=== PATIENT | female | born 1935 | race Caucasian/White ===

== ENCOUNTER 2017-04-05 18:55 | Inpatient (IN) | payer MEDICARE ==
[~2017-04-05] VITALS: Ht 157.5 cm; Wt 49.9 kg
--- NOTE | 2017-04-05 19:35 | NUR ---
Pt BIB private ambulance, on 5150 hold for DTO and GD. Pt has no idea why she is here and has no complaints. Pt denies CP, SOB, dizziness, n/v, no distress noted.
[2017-04-05 20:09] LABS: BASOPHILS # (AUTO) 0.1 K/uL (0.0-8.0); BASOPHILS % (AUTO) 0.8 % (0.0-2.0); EOSINOPHILS # (AUTO) 0.4 K/uL (0.0-0.7); EOSINOPHILS % (AUTO) 5.1 % (0.0-7.0); HEMATOCRIT 33.3 % (31.2-41.9); HEMOGLOBIN 11.4 g/dL (10.9-14.3); LYMPHOCYTES # (AUTO) 1.7 K/uL (20.0-40.0); LYMPHOCYTES % (AUTO) 23.7 % (20.5-51.5); MEAN CORPUSCULAR HEMOGLOBIN 33.2 uug (24.7-32.8); MEAN CORPUSCULAR HGB CONC 34 g/dL (32.3-35.6); MEAN CORPUSCULAR VOLUME 97.2 fL (75.5-95.3); MONOCYTES # (AUTO) 0.8 K/uL (2.0-10.0); MONOCYTES % (AUTO) 11.2 % (0.0-11.0); NEUTROPHILS # (AUTO) 4.3 K/uL (1.8-8.9); NEUTROPHILS % (AUTO) 59.2 % (38.5-71.5); PLATELET COUNT (AUTO) 195 K/uL (179-408); RED BLOOD CELL COUNT(AUTO) 3.42 MIL/uL (3.63-4.92); WHITE BLOOD COUNT (AUTO) 7.2 K/uL (3.8-11.8)
[2017-04-05 20:17] LABS: CARBON DIOXIDE 31 mmol/L (21-32); CHLORIDE 106 mmol/L (98-107); CREATININE 1.3 mg/dL (0.6-1.3); GLUCOSE 115 mg/dL (74-106); POTASSIUM 3.4 mmol/L (3.5-5.1); UREA NITROGEN, BLOOD 32 mg/dL (7-18)
[2017-04-05 20:19] LABS: ETHANOL < 3 MG/DL (0-0)
[2017-04-05 20:30] LABS: THYROID STIMULATING HORMONE 1.895 mIU/mL (0.358-3.740)
[2017-04-05 20:32] LABS: ACETAMINOPHEN < 2.0 ug/mL (10-30); ALANINE AMINOTRANSFERASE 22 U/L (14-59); ALKALINE PHOSPHATASE 86 U/L (50-136); ASPARTATE AMINOTRANSFERASE 17 U/L (15-37); BILIRUBIN,DIRECT 0.1 mg/dL (0.0-0.2); BILIRUBIN,TOTAL 0.3 mg/dL (0.2-1.0); TOTAL PROTEIN, SERUM 7.3 g/dL (6.4-8.2)
--- NOTE | 2017-04-05 21:17 | NUR ---
Called report to [facility].
[2017-04-05 22:10] VITALS: BP 123/67
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
[2017-04-05] MEDS ORDERED: MAG HYDROX/AL HYDROX/SIMETH 30 ML LIQUID UDC PO PRN (22:30)
[2017-04-05] MEDS ORDERED: ACETAMINOPHEN 325 MG TABLET PO PRN (22:30)
[2017-04-05] MEDS ORDERED: MAGNESIUM HYDROXIDE 30 ML LIQUID UDC PO PRN (22:30)
[2017-04-05] MEDS ORDERED: ZOLPIDEM 5 MG TABLET PO PRN (22:30)
[2017-04-05] MEDS ORDERED: RIVA1PAT3 TD (22:34)
[2017-04-05] MEDS ORDERED: AMLO5TAB2 PO (22:41)
[2017-04-05] MEDS ORDERED: HYDR25TA4 PO (22:41)
[2017-04-05] MEDS ORDERED: MEMA10TA PO (22:41)
[2017-04-05] MEDS ORDERED: BENA40TA2 PO (22:41)
[2017-04-05] MEDS ORDERED: CITA10TA9 PO (22:41)
--- NOTE | 2017-04-06 06:58 | NUR ---
Pt AWOKE SCREAMING, YELLING, AND TRYING TO GET OUT OF THE UNIT BY BANGING ON THE DOOR. VERBALLY ABUSIVE TOWARD STAFF. CULTURE OF (B) NARES AND UA COLLECTED AND SENT TO LAB.
[2017-04-06 07:30] VITALS: BP 90/45
[2017-04-06] MEDS ORDERED: OLANZAPINE 10 MG VIAL IM ONE (07:45)
[2017-04-06] MEDS ORDERED: LORAZEPAM 2 MG/1 ML VIAL IM ONE (07:45)
--- NOTE | 2017-04-06 07:45 | NUR ---
Gps/Inspector Raw Quartz- Patient loud, hitting the summers with her hands, yelling ,screaming, confused, not redirectable, pacing arounnd.Flight Nurse Francisco called Psychiatrist , notified of patient 's behavior, orders received.
[2017-04-06 08:06] LABS: *BILIRUBIN,URIN NEGATIVE (NEGATIVE); *BLOOD, URINE Trace-lysed (NEGATIVE); *CLARITY,URINE SLIGHTLY CLOUDY (CLEAR); *COLOR,URINE YELLOW (YELLOW); *KETONES,URINE NEGATIVE (NEGATIVE); *PROTEIN,URINE 1+ (NEGATIVE); *UROBILINOGEN,URINE 0.2 E.U./dl (NORMAL); LEUKOCYTE ESTERASE ,URINE 3+ (NEGATIVE); NITRITE, URINE NEGATIVE (NEGATIVE); PH,URINE 6.5 (5.0-8.0); UGLUCOSE NEGATIVE (NEGATIVE)
[2017-04-06 08:22] LABS: *AMPHETAMINE, URINE NEGATIVE (NEGATIVE); *BARBITURATE, URINE NEGATIVE (NEGATIVE); *CANNABINOID, URINE NEGATIVE (NEGATIVE); *COCCAINE, URINE NEGATIVE (NEGATIVE); *OPIATE, URINE NEGATIVE (NEGATIVE); *PHENCYCLIDINE SCREEN,URINE NEGATIVE (NEGATIVE)
[2017-04-06 09:00] VITALS: BP 90/45
[2017-04-06] MEDS ORDERED: CEPHALEXIN MONOHYDRATE 500 MG CAPSULE PO SCH (09:00)
[2017-04-06 09:05] LABS: BACTERIA,URINE FEW /HPF (NONE SEEN); SQUAMOUS EPITHELIAL CELL,UR FEW /HPF (NONE SEEN); WBC,URINE 50-80 /HPF (0-3)
--- NOTE | 2017-04-06 10:30 | NUR ---
Gps/Paleology Teacher- Patient in bed, appeared to calmed down, quiet,monitor safety b/p 121/46 HR 77, 02 sat 92%, confused, unsteady gait. Assisted to amie-chair for safetym, gait was unsteady, kept up infront of the nurses station monitored closely for safety.
[2017-04-06 10:45] VITALS: BP 121/46
[2017-04-06] MEDS: CEPHALEXIN MONOHYDRATE 250 MG CAPSULE PO SCH ×2 (11:26→17:11)
[2017-04-06] MEDS: LORAZEPAM 0.5 MG TABLET PO PRN ×2 (12:28→20:37)
[2017-04-06] MEDS: MEMANTINE HCL 5 MG TABLET PO SCH ×2 (14:43→20:36)
[2017-04-06] MEDS: QUETIAPINE FUMARATE 25 MG TABLET PO SCH ×2 (14:43→16:53)
[2017-04-06 15:00] VITALS: BP 102/56
--- NOTE | 2017-04-06 15:24 | NUR ---
Gps/Director Home Health- Called [facility], spoked to Nanette, no records of patient receiving Pneumonia vaccine( pt.has only been there since 2016) received flu vaccine 2016 ,called her daughter Matt, and left message.
--- NOTE | 2017-04-06 17:18 | NUR ---
Gps/Jewel Inspector- Daughter Matt returned call, will call PMD in am. to check records regarding Pneumonia vaccine .
[2017-04-06] MEDS ORDERED: QUETIAPINE FUMARATE 25 MG TABLET PO SCH (21:00)
[2017-04-06] MEDS ORDERED: MEMANTINE HCL 10 MG TABLET PO SCH (21:00)
[2017-04-06 21:22] VITALS: BP 106/46
--- NOTE | 2017-04-06 22:02 | NUR ---
Received pt up in her amie-chair for safety, she is a/o 1 unsteady gait, anxious mood, confused, disoriented. she is medication compliant at this time. Ativan 0.5mg PO PRN was given at 2036 for anxious mood. safety was emphasis.
[2017-04-07] MEDS: CEPHALEXIN MONOHYDRATE 250 MG CAPSULE PO SCH ×2 (02:00→10:41)
[2017-04-07 07:30] VITALS: BP 149/79
[2017-04-07] MEDS: QUETIAPINE FUMARATE 25 MG TABLET PO SCH ×3 (08:34→16:43)
[2017-04-07] MEDS: MEMANTINE HCL 5 MG TABLET PO SCH ×2 (08:34→20:10)
[2017-04-07] MEDS: RIVASTIGMINE 9.5 MG/ 24 HR 9.5 MG PATCH TD SCH (08:35)
[2017-04-07] MEDS: LORAZEPAM 0.5 MG TABLET PO PRN ×2 (11:46→22:20)
[2017-04-07] MEDS ORDERED: AMPICILLIN 500 MG CAPSULE PO SCH (12:00)
[2017-04-07] MEDS: AMPICILLIN 500 MG CAPSULE PO SCH ×2 (15:35→22:20)
--- NOTE | 2017-04-07 15:38 | NUR ---
Initial Discharge: Patient currently resides in [facility] [[address] [place] [address]; ]. Pt's daughter Matt reports that she wants her mother to go back to this facility. SW spoke to Nanette at [facility] who stated that the pt is able to come back to the facility after discharge if pt's medications are managed and she is not verbally aggressive. SW will follow up with MD, patient, patient's daughter Matt [phone] to discuss the most appropriate discharge plans. SW will form a safe and proper discharge.
[2017-04-07 16:00] VITALS: BP 115/56
[2017-04-07] MEDS: QUETIAPINE FUMARATE 100 MG TABLET PO SCH (20:10)
[2017-04-07 20:51] VITALS: BP 132/73
[2017-04-07] MEDS ORDERED: QUETIAPINE FUMARATE 25 MG TABLET PO SCH (21:00)
[2017-04-08] MEDS: AMPICILLIN 500 MG CAPSULE PO SCH ×3 (06:15→22:00)
[2017-04-08 07:30] VITALS: BP 124/58
[2017-04-08 08:04] LABS: BASOPHILS # (AUTO) 0.1 K/uL (0.0-8.0); BASOPHILS % (AUTO) 1.1 % (0.0-2.0); EOSINOPHILS # (AUTO) 0.4 K/uL (0.0-0.7); EOSINOPHILS % (AUTO) 6.8 % (0.0-7.0); HEMATOCRIT 35.5 % (31.2-41.9); HEMOGLOBIN 12.3 g/dL (10.9-14.3); LYMPHOCYTES # (AUTO) 1.4 K/uL (20.0-40.0); MEAN CORPUSCULAR HEMOGLOBIN 33.5 uug (24.7-32.8); MEAN CORPUSCULAR HGB CONC 35 g/dL (32.3-35.6); MEAN CORPUSCULAR VOLUME 96.5 fL (75.5-95.3); MONOCYTES # (AUTO) 0.7 K/uL (2.0-10.0); MONOCYTES % (AUTO) 11.2 % (0.0-11.0); NEUTROPHILS # (AUTO) 3.8 K/uL (1.8-8.9); NEUTROPHILS % (AUTO) 58.9 % (38.5-71.5); PLATELET COUNT (AUTO) 205 K/uL (179-408); RED BLOOD CELL COUNT(AUTO) 3.68 MIL/uL (3.63-4.92); WHITE BLOOD COUNT (AUTO) 6.4 K/uL (3.8-11.8)
[2017-04-08 08:36] LABS: ALANINE AMINOTRANSFERASE 21 U/L (14-59); ALKALINE PHOSPHATASE 72 U/L (50-136); ASPARTATE AMINOTRANSFERASE 27 U/L (15-37); BILIRUBIN,TOTAL 0.5 mg/dL (0.2-1.0); CARBON DIOXIDE 30 mmol/L (21-32); CHLORIDE 104 mmol/L (98-107); CREATININE 1.2 mg/dL (0.6-1.3); GLUCOSE 102 mg/dL (74-106); MAGNESIUM 2.2 mg/dL (1.8-2.4); PHOSPHOROUS 3.6 mg/dL (2.5-4.9); POTASSIUM 3.6 mmol/L (3.5-5.1); TOTAL PROTEIN, SERUM 7.1 g/dL (6.4-8.2); UREA NITROGEN, BLOOD 23 mg/dL (7-18)
[2017-04-08] MEDS: MEMANTINE HCL 5 MG TABLET PO SCH ×2 (08:50→20:04)
[2017-04-08] MEDS: QUETIAPINE FUMARATE 25 MG TABLET PO SCH ×3 (08:51→16:02)
[2017-04-08] MEDS: RIVASTIGMINE 9.5 MG/ 24 HR 9.5 MG PATCH TD SCH (08:51)
--- NOTE | 2017-04-08 09:45 | NUR ---
PT WAS NOTED SITTING IN THE BED WHILE MAKING ROUNDS. THE NURSE WENT TO GET SUPPLIES. UPON RETURN, PT WAS NOTED ON THE FLOOR NEXT TO THE BED. PT WAS ASSISTED TO THE CHAIR. A SMALL SKIN ABRASION WAS NOTED ON RIGHT KNEE. PT DENIES PAIN. VS WERE WNL. PT'S DAUGHTER GLADIS WAS NOTIFIED, GENOVEVA VALLE WAS NOTIFIED. NO NEW ORDERS. WILL CONTINUE TO MONITOR.
[2017-04-08] MEDS: LORAZEPAM 0.5 MG TABLET PO PRN (11:13)
[2017-04-08] MEDS: GENTAMICIN SULFATE OPHT DROP 5 ML BOTTLE RIGHTEYE SCH ×2 (16:02→18:51)
[2017-04-08 16:50] VITALS: BP 103/50
[2017-04-08] MEDS: QUETIAPINE FUMARATE 100 MG TABLET PO SCH (20:04)
[2017-04-08 20:25] VITALS: BP 112/75
[2017-04-09] MEDS: LORAZEPAM 0.5 MG TABLET PO PRN ×3 (01:17→17:22)
[2017-04-09] MEDS: AMPICILLIN 500 MG CAPSULE PO SCH ×3 (06:45→22:35)
[2017-04-09] MEDS: GENTAMICIN SULFATE OPHT DROP 5 ML BOTTLE RIGHTEYE SCH ×5 (06:46→23:51)
[2017-04-09 07:30] VITALS: BP 106/50
[2017-04-09] MEDS: RIVASTIGMINE 9.5 MG/ 24 HR 9.5 MG PATCH TD SCH (08:17)
[2017-04-09] MEDS: QUETIAPINE FUMARATE 25 MG TABLET PO SCH ×3 (08:17→17:01)
[2017-04-09] MEDS: MEMANTINE HCL 5 MG TABLET PO SCH ×2 (08:17→21:00)
[2017-04-09 16:18] VITALS: BP 99/53
[2017-04-09] MEDS ORDERED: QUETIAPINE FUMARATE 25 MG TABLET PO PRN (16:45)
[2017-04-09 20:00] VITALS: BP 111/65
[2017-04-09] MEDS: QUETIAPINE FUMARATE 100 MG TABLET PO SCH (21:00)
[2017-04-10] MEDS: AMPICILLIN 500 MG CAPSULE PO SCH ×3 (06:00→16:50)
[2017-04-10] MEDS: GENTAMICIN SULFATE OPHT DROP 5 ML BOTTLE RIGHTEYE SCH ×3 (06:00→17:36)
[2017-04-10 07:30] VITALS: BP 122/56
[2017-04-10] MEDS: RIVASTIGMINE 9.5 MG/ 24 HR 9.5 MG PATCH TD SCH (08:14)
[2017-04-10] MEDS: MEMANTINE HCL 5 MG TABLET PO SCH ×2 (08:15→20:20)
[2017-04-10] MEDS: QUETIAPINE FUMARATE 25 MG TABLET PO SCH ×3 (08:15→16:51)
[2017-04-10] MEDS ORDERED: LORAZEPAM 2 MG/1 ML VIAL IM ONE (11:45)
[2017-04-10] MEDS ORDERED: OLANZAPINE 10 MG VIAL IM ONE (11:45)
--- NOTE | 2017-04-10 11:46 | NUR ---
PATIENT IS IN BED ATTEMPTED TO GET OUT FROM BED WITHOUT ASSISTED, WHEN CARE PROVIDE SHE BECOME VERY COMBATIVE ,HITTING BEATING ON THE TABLE.UNABLE TO FOLLOW DIRECTION ,THREATENING AND PHYSICAL HARM TO STAFFS. MD MADE AWARE IM WAS ORDERED AND GIVEN ,WILL CONTINUE MONITORING.
--- NOTE | 2017-04-10 12:30 | NUR ---
PATIENT HAS BEEN C/O RIGHT SHOULDER PAIN ,MD MADE AWARE ,X-RAY ORDERED.
--- NOTE | 2017-04-10 14:38 | NUR ---
RIGHT SHOULDER X RAY RESULT RELAY TO [facility] [employer] INDU[employer]Y ANALYST WITH NEW ORDER FOR ORTHO CONSULT BY DR. BOLAND .
--- NOTE | 2017-04-10 14:42 | NUR ---
Called Dr. Liliana Umanzor , for Ortho consult, unit secretary stated Dr. Umanzor will be in tomorrow in AM and will call unit.
--- NOTE | 2017-04-10 14:44 | NUR ---
RECEIVED RIGHT SHOULDER X RAY RESULT ,FAMILY NOTIFIED LEFT MASSAGE IN PATIENT'S DAUGHTER JOAN ' VOICE MAIL.
--- NOTE | 2017-04-10 16:13 | NUR ---
spoke with pt's daughter Neva regarding Right shoulder xray result.
[2017-04-10 17:06] VITALS: BP 120/52
--- NOTE | 2017-04-10 17:46 | NUR ---
noted patient's right shoulder is swelling ice pack applied ,[place] STRUCTURAL METAL FABRICATOR APPRENTICE notified ,will transfer patient to med/surg floor.
--- NOTE | 2017-04-10 18:02 | NUR ---
Dr. celestin notified with order to transfer to Telemetry floor ,nursing supervisor housecleaner notified.
--- NOTE | 2017-04-10 18:35 | NUR ---
spoke with patient's daughter Neva regarding patient transfer to Tele floor for further treatment.
--- NOTE | 2017-04-10 19:45 | NUR ---
PT RECEIVED TO CARE IN HER ROOM LYING IN BED AWAKE BUT CONFUSED AND RESTLESS, SITTER AT BED SIDE, RIGHT SHOULDER SWOLLEN, BRUISE NOTED ON THE MIDDLE, TRIED TO APPLY ICE BUT PT DECLINED, PT REFUSED VITAL SIGNS, VERY IRRITABLE, YELLING SCREAMING, DOES NOT MAKE SENSE, WILL CONTINUE TO MONITOR CLOSELY.
[2017-04-10 20:15] VITALS: BP 128/63
[2017-04-10] MEDS: QUETIAPINE FUMARATE 100 MG TABLET PO SCH (20:20)
--- NOTE | 2017-04-10 20:20 | NUR ---
ORDER OBTAINED FROM DR GUY TO DISCHARGE PT TO TELE FLOOR, TO CONTINUE ALL MEDS AND TO CONTINUE 14 DAY HOLD, PT'S DAUGHTER NOTIFIED, BED TIME MEDS GIVEN, CRUSHED AND GIVEN WITH WERNER PUDDING.
--- NOTE | 2017-04-10 21:00 | NUR ---
PT TRANSFERRED TO MED SURG TELE FL [id number], REPORT GIVEN TO TOÑO HENSON. ALL PT'S BELONGINGS SENT WITH THE PT ANS THE SITTER, ORIGINAL HOLD PAPERS SENT WITH PT, INCLUDING VACCINE RECORD, TMS, REPORT OF XRAY, FACE SHEET, DOCTORS ORDER .
[2017-04-10] MEDS ORDERED: QUET100T PO ×3 (21:07→21:19)
[2017-04-10] MEDS ORDERED: QUET50TA PO (21:19)
== END 2017-04-10 21:00 | disposition short-term general hospital (02) | DRG 885 ==
LOC: ER 18:55 → GPS 21:53
PROVIDERS: ADMIT Psychiatry & Neurology Psychiatry; ATTEND Internal Medicine
DX: F23 Brief psychotic disorder (principal); F02.81 Dementia in other diseases classified elsewhere, unspecified severity, with behavioral disturbance; B95.5 Unspecified streptococcus as the cause of diseases classified elsewhere; G30.9 Alzheimer's disease, unspecified; M80.821A Other osteoporosis with current pathological fracture, right humerus, initial encounter for fracture; N39.0 Urinary tract infection, site not specified; E78.5 Hyperlipidemia, unspecified; F41.8 Other specified anxiety disorders; E87.6 Hypokalemia; Z79.899 Other long term (current) drug therapy; I10 Essential (primary) hypertension; I70.0 Atherosclerosis of aorta; H10.9 Unspecified conjunctivitis
CPT/HCPCS: 36415; 70030-TC; 71045; 73030; 80307; 83735; 84100; 84443; 85025; 85730; 87086; 93005; A4663; G0480; G0480-TC; J0290; J2060; J2358

== ENCOUNTER 2017-04-10 20:48 | Inpatient (IN) | payer MEDICARE ==
[~2017-04-10] VITALS: Ht 157.5 cm; Wt 51.3 kg
[~2017-04-10 20:48] MED LIST: AMLO5TAB2 PO; BENA40TA2 PO; HYDR25TA4 PO
[2017-04-10 21:00] VITALS: BP 126/81
[2017-04-10] MEDS ORDERED: QUET100T PO ×3 (21:07→21:19)
[2017-04-10] MEDS ORDERED: QUET50TA PO (21:19)
--- NOTE | 2017-04-10 21:20 | NUR ---
nsg: pt received mental [facility], confused. has right humeral fracture. v/s stable. tele, SR. pt with sitter at the bedside. cont to monitor.
[2017-04-10] MEDS ORDERED: MORPHINE SULFATE 2 MG/1 ML DISP.SYRIN IV PRN (22:15)
[2017-04-10] MEDS ORDERED: CEFTRIAXONE 1 G in IV DEXTROSE 5% 50 ML IV SCH (22:15)
[2017-04-10] MEDS ORDERED: ONDANSETRON 4 MG/2 ML VIAL IV PRN (22:15)
[2017-04-10] MEDS ORDERED: CEFTRIAXONE 1 G VIAL ONE (23:03)
--- NOTE | 2017-04-10 23:15 | NUR ---
nsg: Dr. Umanzor came to see pt. see orders.
[2017-04-10] MEDS: POTASSIUM CHLORIDE 20 MEQ in IV D5 1/2 NS 1000 ML 1,000 ML IV PRN (23:36)
[2017-04-11] VITALS: BP 122/81
--- NOTE | 2017-04-11 00:15 | NUR ---
NSG: Pt put on a sling per Dr. Umanzor's order.
--- NOTE | 2017-04-11 01:00 | NUR ---
Patient's family ortho doctor Dr. Romero called to check on patient. Referred Dr. Romero to Dr. Umanzor to discuss patient's status. Addendum: 04/11/17 at 1855 by VINAYAK BIRCH RN Correction: Time should be 1300 instead of 0100
[2017-04-11 04:00] VITALS: BP 130/81
--- NOTE | 2017-04-11 05:30 | NUR ---
NSG: Pt drowsy but arousable. kept clean and dry. repositioned. wears sling on right arm per Dr. Umanzor's order. tele, SR. cont to monitor.
--- NOTE | 2017-04-11 05:46 | NUR ---
RECEIVED PT AWAKE IN BED, SHE'S CONFUSED AND EASILY AGITATED. DENIES PAIN OR DISCOMFORT. SITTER AT BEDSIDE, WILL CONTINUE TO MONITOR PT Addendum: 04/12/17 at 0549 by CHRISTIANA WEBER RN TIME OF RECEIPT 2000
[2017-04-11 06:46] LABS: ALANINE AMINOTRANSFERASE 24 U/L (14-59); ALKALINE PHOSPHATASE 61 U/L (50-136); ASPARTATE AMINOTRANSFERASE 25 U/L (15-37); BILIRUBIN,TOTAL 0.5 mg/dL (0.2-1.0); CARBON DIOXIDE 30 mmol/L (21-32); CHLORIDE 106 mmol/L (98-107); GLUCOSE 136 mg/dL (74-106); PHOSPHOROUS 3.3 mg/dL (2.5-4.9); POTASSIUM 3.9 mmol/L (3.5-5.1); TOTAL PROTEIN, SERUM 6.2 g/dL (6.4-8.2); UREA NITROGEN, BLOOD 25 mg/dL (7-18)
[2017-04-11 06:56] LABS: IRON, SERUM 36 ug/dL (50-175)
[2017-04-11 07:02] LABS: BASOPHILS % (AUTO) 0.6 % (0.0-2.0); EOSINOPHILS # (AUTO) 0.2 K/uL (0.0-0.7); LYMPHOCYTES # (AUTO) 1.2 K/uL (20.0-40.0); LYMPHOCYTES % (AUTO) 24.1 % (20.5-51.5); MEAN CORPUSCULAR HEMOGLOBIN 33.3 uug (24.7-32.8); MEAN CORPUSCULAR HGB CONC 34 g/dL (32.3-35.6); MONOCYTES # (AUTO) 0.9 K/uL (2.0-10.0); MONOCYTES % (AUTO) 17.4 % (0.0-11.0); NEUTROPHILS # (AUTO) 2.8 K/uL (1.8-8.9); NEUTROPHILS % (AUTO) 54.9 % (38.5-71.5); PLATELET COUNT (AUTO) 197 K/uL (179-408); RED BLOOD CELL COUNT(AUTO) 2.98 MIL/uL (3.63-4.92); WHITE BLOOD COUNT (AUTO) 5.1 K/uL (3.8-11.8)
[2017-04-11 07:04] LABS: HEMATOCRIT 28.9 % (31.2-41.9); HEMOGLOBIN 9.9 g/dL (10.9-14.3)
[2017-04-11] MEDS: LORAZEPAM 2 MG/1 ML VIAL IV PRN (07:59)
[2017-04-11] MEDS: PANTOPRAZOLE SODIUM 40 MG TABLET.DR PO SCH (08:20)
[2017-04-11] MEDS: QUETIAPINE FUMARATE 25 MG TABLET PO SCH ×2 (10:10→16:54)
[2017-04-11] MEDS: RIVASTIGMINE 9.5 MG/ 24 HR 9.5 MG PATCH TD SCH (10:10)
[2017-04-11] MEDS: MEMANTINE HCL 5 MG TABLET PO SCH ×2 (10:10→20:54)
[2017-04-11 10:21] LABS: EOSINOPHILS % (MANUAL) 1 % (0-8); LYMPHOCYTES % (MANUAL) 26 % (20-40); MONOCYTES % (MANUAL) 14 % (2-10); MYELOCYTES % 1 % (0-0); NEUTROPHILS % (MANUAL) 58 % (42-75)
[2017-04-11 12:00] VITALS: BP 113/47
--- NOTE | 2017-04-11 13:00 | NUR ---
Patient's family ortho doctor Dr. Romero called to check on patient. Referred Dr. Romero to Dr. Umanzor to discuss patient's status.
--- NOTE | 2017-04-11 13:20 | NUR ---
spoke to Dr Umanzor that a family friend ortho MD Dr Walton would like the xray film to be faxed/texted to him (Dr Walton)- told Dr Umanzor that I would refer this to the community planner and community planner notified Addendum: 04/11/17 at 1355 by MAKENZIE AVENDAÑO RN xray film to be texted to his cell phone [phone]
--- NOTE | 2017-04-11 13:34 | NUR ---
14 day hold discontinued by MD. Order in patient's chart.
--- NOTE | 2017-04-11 15:00 | NUR ---
Patient visited by daughters Matt Ashby and Aide Schultz, daughter-law- Beverly Edward. 1:1 sitter at bedside provided for safety.
[2017-04-11 16:00] VITALS: BP 137/64
--- NOTE | 2017-04-11 16:08 | NUR ---
[employer] Security Number [id number]. Please ask admitting to add to MAR
--- NOTE | 2017-04-11 16:40 | NUR ---
Woven Paper Hat Mender from [employer] at bedside to secure specified sling as ordered. Patient tolerated procedure well, cooperative, in no distress. Administered pain medication as ordered.
[2017-04-11] MEDS: MORPHINE SULFATE 4 MG/1 ML DISP.SYRIN IV PRN (16:54)
--- NOTE | 2017-04-11 18:00 | NUR ---
Patient resting in bed, in no distress. IVF running, no infiltration noted. Patient positioned as ordered. Sling on right arm intact, placed as ordered. Assisted patient with toileting needs. Safety measures in place, bed alarm on. Will continue to monitor.
[2017-04-11 20:00] VITALS: BP 104/64
[2017-04-11] MEDS: QUETIAPINE FUMARATE 100 MG TABLET PO SCH (20:55)
[2017-04-11] MEDS: POTASSIUM CHLORIDE 20 MEQ in IV D5 1/2 NS 1000 ML 1,000 ML IV PRN (20:57)
[2017-04-11] MEDS: CEFTRIAXONE 1 G in IV DEXTROSE 5% 50 ML IV SCH (21:01)
--- NOTE | 2017-04-12 | NUR ---
PT IS ASLEEP WITH NO S/S OF PAIN OR DISTRESS AT PRESENT. SITTER AT BED SIDE WITH CLOSE MONITORING OF PT, WILL CONTINUE TO MONITOR PT
[2017-04-12] MEDS: LORAZEPAM 2 MG/1 ML VIAL IV PRN ×2 (05:29→18:04)
--- NOTE | 2017-04-12 05:45 | NUR ---
PT IS VERY AGITATED AND ANXIOUS COMBATIVE DURING VITALS SIGNS, KICKING AND HITTING STAFF, ATIVAN PRN GIVEN WITH EFFECT. CALM AND QUIET ENVIRONMENT PROVIDED, WILL CONTINUE TO MONITOR PT
[2017-04-12] MEDS: PANTOPRAZOLE SODIUM 40 MG TABLET.DR PO SCH (06:47)
[2017-04-12] MEDS: MORPHINE SULFATE 4 MG/1 ML DISP.SYRIN IV PRN ×3 (06:54→15:59)
[2017-04-12 07:24] LABS: BASOPHILS % (AUTO) 0.5 % (0.0-2.0); EOSINOPHILS # (AUTO) 0.1 K/uL (0.0-0.7); EOSINOPHILS % (AUTO) 2.1 % (0.0-7.0); HEMATOCRIT 25.3 % (31.2-41.9); HEMOGLOBIN 8.8 g/dL (10.9-14.3); LYMPHOCYTES # (AUTO) 1.2 K/uL (20.0-40.0); LYMPHOCYTES % (AUTO) 20.3 % (20.5-51.5); MEAN CORPUSCULAR HEMOGLOBIN 33.9 uug (24.7-32.8); MEAN CORPUSCULAR HGB CONC 35 g/dL (32.3-35.6); MEAN CORPUSCULAR VOLUME 97.2 fL (75.5-95.3); MONOCYTES # (AUTO) 0.9 K/uL (2.0-10.0); NEUTROPHILS # (AUTO) 3.6 K/uL (1.8-8.9); NEUTROPHILS % (AUTO) 62.1 % (38.5-71.5); PLATELET COUNT (AUTO) 164 K/uL (179-408); RED BLOOD CELL COUNT(AUTO) 2.61 MIL/uL (3.63-4.92); WHITE BLOOD COUNT (AUTO) 5.8 K/uL (3.8-11.8)
[2017-04-12 07:36] LABS: CARBON DIOXIDE 26 mmol/L (21-32); CHLORIDE 109 mmol/L (98-107); GLUCOSE 125 mg/dL (74-106); POTASSIUM 4.5 mmol/L (3.5-5.1); UREA NITROGEN, BLOOD 17 mg/dL (7-18)
[2017-04-12] MEDS: RIVASTIGMINE 9.5 MG/ 24 HR 9.5 MG PATCH TD SCH (08:31)
[2017-04-12] MEDS: QUETIAPINE FUMARATE 25 MG TABLET PO SCH ×2 (08:31→16:00)
[2017-04-12] MEDS: MEMANTINE HCL 5 MG TABLET PO SCH ×2 (08:31→21:00)
[2017-04-12] MEDS ORDERED: BISACODYL 10 MG SUPP.RECT RC ONE (10:00)
[2017-04-12 10:39] LABS: EOSINOPHILS % (MANUAL) 1 % (0-8); LYMPHOCYTES % (MANUAL) 19 % (20-40); MONOCYTES % (MANUAL) 16 % (2-10); NEUTROPHILS % (MANUAL) 64 % (42-75)
[2017-04-12] MEDS: IV 1/2NS 1000 ML 1,000 ML IV PRN (10:58)
[2017-04-12 12:00] VITALS: BP 98/48
[2017-04-12 16:00] VITALS: BP 103/40
--- NOTE | 2017-04-12 18:00 | NUR ---
Assessed patient, scanned bladder, result showed 999ml. notified. Order for urbina cath taken, read back, carried out.
--- NOTE | 2017-04-12 18:20 | NUR ---
Ernandez cath insertion done, patient tolerated procedure well. Urine output 800ml, yellow/clear color, no sediments noted. Will endorse to denture contour wire specialist RN to monitor urine output.
--- NOTE | 2017-04-12 18:45 | NUR ---
Patient is alert, no distress. Patient in sitting position, hob 45 degrees, raised foot of the bed to bend the knee as ordered. Brace on right arm intact/secured in place as ordered. Circulation checked. IVF running, no infiltration noted. Pain management as ordered. Patient visited by family at 1700. 1:1 sitter provided for safety, all safety measures in place, bed alarm on. Will continue to monitor.
--- NOTE | 2017-04-12 19:00 | NUR ---
CT scan of the right shoulder with 3 D reformation without contrast ordered by Dr. Umanzor. Radiology notified.
[2017-04-12 19:26] VITALS: BP 98/63
--- NOTE | 2017-04-12 20:00 | NUR ---
RECEIVED PT ASLEEP IN BED BUT EASILY AROUSABLE, NO S/S OF PAIN OR DISTRESS NOTED. SITTER AT BEDSIDE. WILL CONTINUE TO MONITOR PT
[2017-04-12] MEDS: Z GUARD REMEDY PASTE 57 GM TUBE TOP SCH (21:00)
[2017-04-12] MEDS: QUETIAPINE FUMARATE 100 MG TABLET PO SCH (21:00)
[2017-04-12] MEDS: CEFTRIAXONE 1 G in IV DEXTROSE 5% 50 ML IV SCH (21:02)
--- NOTE | 2017-04-13 03:46 | NUR ---
CONTINUE TO MONITOR PT, PT IS ASLEEP WITH HOB AT 45 DEGREES WITH FOOT RAISED TO BEND KNEES. HSS BRACE IN PLACE AND INTACT, SKIN IS PINK WITH GOOD CIRCULATION. PT WITH NO S/S OF PAIN OR DISTRESS AT PRESENT. SITTER AT BED SIDE, WILL CONTINUE TO MONITOR PT
[2017-04-13] MEDS: PANTOPRAZOLE SODIUM 40 MG TABLET.DR PO SCH (06:00)
[2017-04-13 07:00] VITALS: BP 110/65
[2017-04-13 07:23] LABS: CARBON DIOXIDE 30 mmol/L (21-32); CHLORIDE 103 mmol/L (98-107); CREATININE 0.9 mg/dL (0.6-1.3); GLUCOSE 117 mg/dL (74-106); POTASSIUM 3.9 mmol/L (3.5-5.1); UREA NITROGEN, BLOOD 13 mg/dL (7-18)
--- NOTE | 2017-04-13 07:30 | NUR ---
Received patient resting in bed, in no distress. Brace on right shoulder in place, noted bruising and swelling. Pulses checked, skin warm. Will notify MD regarding patient's right shoulder assessment. Addendum: 04/13/17 at 1633 by VINAYAK BIRCH RN Add: IVF infusing, urbina cath patent/intact, draining yellow urine.
[2017-04-13] MEDS: LORAZEPAM 2 MG/1 ML VIAL IV PRN (08:45)
--- NOTE | 2017-04-13 08:45 | NUR ---
Patient agitated, combative, shouting, screaming, non cooperative with patient care. Patient was pulling IV line and urbina cath, hitting, kicking, risk of hurting self. Reorientation attempts unsuccessful, medicated as ordered. Padded rails for patient's safety to prevent bruising self from kicking and hitting. Notified MD of behavioral condition of patient. Acute restraints ordered. Will reassess and continue to monitor.
[2017-04-13] MEDS: MEMANTINE HCL 5 MG TABLET PO SCH ×2 (08:48→20:26)
[2017-04-13] MEDS: QUETIAPINE FUMARATE 25 MG TABLET PO SCH ×2 (08:48→16:06)
[2017-04-13] MEDS: RIVASTIGMINE 9.5 MG/ 24 HR 9.5 MG PATCH TD SCH (08:49)
[2017-04-13] MEDS: Z GUARD REMEDY PASTE 57 GM TUBE TOP SCH ×2 (08:49→20:31)
[2017-04-13 08:50] VITALS: BP 103/61
[2017-04-13 08:54] LABS: EOSINOPHILS # (AUTO) 0.2 K/uL (0.0-0.7)
[2017-04-13 09:12] LABS: BASOPHILS % (AUTO) 0.5 % (0.0-2.0); EOSINOPHILS % (AUTO) 3.1 % (0.0-7.0); HEMATOCRIT 28.5 % (37-47); HEMOGLOBIN 9.9 G/DL (12.0-16.0); LYMPHOCYTES # (AUTO) 1.1 K/UL (0.8-4.8); MEAN CORPUSCULAR HEMOGLOBIN 33.8 UUG (27.0-31.0); MEAN CORPUSCULAR HGB CONC 35 g/dL (32.0-37.0); MEAN CORPUSCULAR VOLUME 97.6 FL (81.0-99.0); MONOCYTES # (AUTO) 0.8 K/UL (0.1-1.30); MONOCYTES % (AUTO) 11.8 % (0.0-11.0); NEUTROPHILS # (AUTO) 4.4 K/UL (1.8-8.9); NEUTROPHILS % (AUTO) 67.6 % (38.5-71.5); PLATELET COUNT (AUTO) 176 K/UL (150-450); RED BLOOD CELL COUNT(AUTO) 2.92 MIL/UL (4.2-5.4); WHITE BLOOD COUNT (AUTO) 6.5 K/UL (4.0-11.2)
[2017-04-13] MEDS: IV 1/2NS 1000 ML 1,000 ML IV PRN (09:46)
--- NOTE | 2017-04-13 11:17 | NUR ---
Patient transported via gurney to Radiology for CT scan of the right shoulder. Accompanied by radiologist and title insurance examiner. Patient is asleep, easily arousable, in no distress.
[2017-04-13] MEDS: MORPHINE SULFATE 4 MG/1 ML DISP.SYRIN IV PRN (15:00)
[2017-04-13 15:13] VITALS: BP 130/61
[2017-04-13] MEDS: IV NS 1000 ML 1,000 ML IV PRN (16:06)
--- NOTE | 2017-04-13 18:00 | NUR ---
Patient resting in bed, calm, in no distress. Positioned as ordered. Brace on right arm secured in place. IVF running, no infiltration noted. Pain management as ordered. Ernandez cath intact/patent draining yellow urine. Circulation checked for acute restraints/mittens, protocol/safety followed. Patient kept clean/dry. Bed alarm on. 1:1 sitter provided. Will continue to monitor.
[2017-04-13 20:00] VITALS: BP 125/61
[2017-04-13] MEDS: QUETIAPINE FUMARATE 100 MG TABLET PO SCH (20:26)
[2017-04-13] MEDS: CEFTRIAXONE 1 G in IV DEXTROSE 5% 50 ML IV SCH (22:16)
[2017-04-14 06:00] VITALS: BP 125/52
[2017-04-14] MEDS: PANTOPRAZOLE SODIUM 40 MG TABLET.DR PO SCH (06:02)
--- NOTE | 2017-04-14 06:35 | NUR ---
PATIENT WAS RESTLESS AT THE BEGINNING OF THE SHIFT, CONTINUED TO YELL AND ATTEMPT TO PULL OFF HER MITTENS. 1:1 SITTER AT BEDSIDE AT ALL TIMES. RESTRAINTS RELEASED REGULARLY AND SKIN CHECKED. GLASS CATHETER INTACT AND DRAINING YELLOW URINE. OFFERED PATIENT SOME FOOD AND FLUIDS AND THEN PATIENT SLEPT A TOTAL OF 8 HOURS LAST NIGHT.
--- NOTE | 2017-04-14 08:17 | NUR ---
Social Work Update: 04/11/17: Family meeting with KLAUS Gutierrez [phone] and her sister in law, Beverly on [facility]. floor after Dorie LUNDBERG said family need clarification about patient's hold status. They needed reassurance that patient will still be followed by Dr Segovia on [facility]. and this was provided. Matt played recorded message from GPS RN on 04/08/17 who spoke fast and did not state name clearly where she was advised that her mother fell off her bed on 04/08/17. They sated that they had sen the shoulder Xray to their brother in law, Dr Romero, who is a shoulder specialist in [place] and he felt she needed surgery. They were considering various options for her surgery but wanted her to be a hospital that had psychiatry electronic systems security assessment as they feared she would decompensate without psychiatric follow up prior to and and after surgery. KLAUS Gutierrez stated she was overwhelmed as her father, patient's was in [facility]. timber mill worker provided her contact information and agreed to follow up with family. They also requested names and number of our orthopedists on staff at [facility]. Dr Umanzor had already seen patient. Provided Dr Natanael Concepcion's number: [phone] per family request They said Dr Romero would make all the decisions and would call Dr Concepcion too. Notified Dr KARMEN Hernandes, production administrator of family meeting and their requests.
--- NOTE | 2017-04-14 08:32 | NUR ---
Social Work Intervention: On 04/12/16- called Matt ENRIQUE at 1645. She said " I am leaving work, please speak to Aide, my sister. This machine sign writer spoke to Aide who said Norbert Fields TILTING HEAD BAND SAWYER said patient had a UTI and so " we cannot have surgery until this is cured." Advised her that a decision needs to be made and that the UTI should resolve soon. Aide said they had no decision yet.This social worker clinical urged her to make a decision as pt.'s shoulder was causing her discomfort and needed to be repaired. She said they would get back to machine sign writer.
--- NOTE | 2017-04-14 08:36 | NUR ---
Social Work Note: 04/13/17 - received phone call from Beverly, sister in law. She said that they spoke to Dr Segovia who said that pt. should not go to [facility] since there was no psychiatrist program paraprofessional who could see pt. pre and post op. This social work job titles confirmed with Dr Segovia who said he did tell the family that she needed a psychiatrist close by or she would deteriorate after surgery. At 1600 Dr Segovia notified this resume writer that he spoke with Dr Romero who was in contact with an MD at [facility] who was considering taking on the case. Beverly said to this resume writer, " Tosha did break her shoulder in the fall on Monday. She was not holding it or crying in pain before this." Discussed case with Jorje LUNDBERGgrain operations manager and Jennifer Renteria CERTIFIED TECHNICIAN SPECIALIST in office. This team also called [place] and spoke with KAYLIN AGLLAGHER RN. Kassidy faxed chart for review but case was declined by program paraprofessional orthopedist as it was " not open and therefore non-emgergent." Dr Segovia was notified and said we shoudl wait for outcome with [facility] orthopedist. Advised Dr KARMEN Hernandes, sas administrator re status of case in the evening on 04/13/17.
--- NOTE | 2017-04-14 08:45 | NUR ---
Social Work Note: 04/14/18- Was in touch with Jennifer Renteria, child welfare caseworker. and Kassidy RN to expedite transfer to [facility] since family are very open to this and Dr Romero knows orthopedist who specializes in shoulder surgery there. Jennifer initiated transfer request at 0730 and also with [facility] who have psychiatry. Dr Segovia also indicated yesterday that this surgeon would be calling [place]. Family expressed hayder in Dr Segovia and will go with his recommendations since they are concerned about her psychiatric symptoms.
[2017-04-14] MEDS ORDERED: Medication Not On Formulary EA (Benazepril Hcl 40 MG) PO SCH (09:00)
[2017-04-14] MEDS: BENAZEPRIL HCL 20 MG TABLET PO SCH (09:00)
[2017-04-14] MEDS: AMLODIPINE 5 MG TABLET PO SCH (09:00)
[2017-04-14] MEDS: QUETIAPINE FUMARATE 25 MG TABLET PO SCH ×2 (09:14→16:45)
[2017-04-14] MEDS: MEMANTINE HCL 5 MG TABLET PO SCH ×3 (09:14→21:03)
[2017-04-14] MEDS: RIVASTIGMINE 9.5 MG/ 24 HR 9.5 MG PATCH TD SCH (09:14)
[2017-04-14] MEDS: Z GUARD REMEDY PASTE 57 GM TUBE TOP SCH ×2 (09:15→21:03)
[2017-04-14 09:19] VITALS: BP 92/37
[2017-04-14 12:00] VITALS: BP 108/49
[2017-04-14] MEDS: MORPHINE SULFATE 4 MG/1 ML DISP.SYRIN IV PRN (13:16)
[2017-04-14] MEDS: IV NS 1000 ML 1,000 ML IV PRN (13:18)
--- NOTE | 2017-04-14 14:56 | NUR ---
Social Work Notes: Spoke with Dr Romero and he said he is trying to reach Dr Damion Davis [phone] who is his personal friend. He said they had one conversation and now Dr Davis is not calling him back. He said he would try him again. This director social expressed our administration's concern that this surgery should not be stalled as patient is in discomfort. He agreed this should not be stalled and said that he does not want her to have a surgeon that is not experienced. He took this rfp writer's phone number. He was advised that Dr Natanael Concepcion [phone] consulted and is willing to do surgery. He wants to call Dr Concepcion as he has questions about his experience. Phone number was provided to family. Matt ENRIQUE [phone] was called but could not be reached at 1400. Dr Segovia was updated by this rfp writer at 1520 on all the recorded events.
--- NOTE | 2017-04-14 16:15 | NUR ---
Spoke with Silvioanai, patient's daughter. Daughter called to ask for updates on patient. Informed patient agitated in the beginning of the shift around 0800 but calmed down without medicating patient. Informed that patient was provided a bed bath, hair washed by WOOD CREW SUPERVISOR. Daughter delighted and appreciated information.
--- NOTE | 2017-04-14 16:30 | NUR ---
Social Work Note: Spoke with Matt ENRIQUE [phone] and advised her that a decision should be made for patient's welfare and comfort. Discussed that they could be neglecting pt. by delaying. Advised her that Dr Concepcion left consent for surgery. Kassidy spoke to Matt ENRIQUE. She accused this automatic typewriter inspector of harassment and said they " are doing their best to make a decision". She wants us to speak to Beverly, her sister in law as she is overwhelmed. She said " the fracture happened in your hospital, don't push us." [facility] social work therapist advised Matt pt. is Matt then calmed down and said " we want the best for our mother and will get back to you soon." This social work therapist advised her we would wait to hear from them. This automatic typewriter inspector texted Dr Concepcion and asked him to call Dr Walton. Phone number of Dr Walton was provided to Dr Concepcion. Will await decision from family.
--- NOTE | 2017-04-14 18:00 | NUR ---
Patient continue to sleep/rest in bed, easily arousable, calm, no behavioral issues as of this time. Cooperated with patient care and medications. Patient positioned as ordered. Brace on right arm secured in place, bruising/swelling noted, pulses present, able to move extremity. IVF infusing, no infiltration noted. Ernandez cath intact/patent, draining yellow urine. VS stable, afebrile.
--- NOTE | 2017-04-14 19:00 | NUR ---
Appears sleeping during initial rounds. Sitter at bedside. Will continue to monitor behavior closely
--- NOTE | 2017-04-14 19:00 | NUR ---
Yen, patient's daughter called regarding intention to proceed with surgery. Transferred call to casework specialist for details of surgery.
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
[2017-04-14] MEDS: LORAZEPAM 2 MG/1 ML VIAL IV PRN (19:46)
[2017-04-14 20:00] VITALS: BP 112/61
[2017-04-14] MEDS: QUETIAPINE FUMARATE 100 MG TABLET PO SCH ×2 (21:00→21:03)
[2017-04-14] MEDS: CEFTRIAXONE 1 G in IV DEXTROSE 5% 50 ML IV SCH (21:51)
[2017-04-15 05:28] VITALS: BP 110/64
[2017-04-15] MEDS: PANTOPRAZOLE SODIUM 40 MG TABLET.DR PO SCH (06:23)
--- NOTE | 2017-04-15 06:51 | NUR ---
Slept well. No agitation reported after the Ativan given, Sitter remain at bedside. All needs attended and met. No significant event reported. Continue current plan of care.
--- NOTE | 2017-04-15 06:52 | NUR ---
Slept well. No significant event reported. Continue current plan of care. Safety measures and fall precaution maintained.
--- NOTE | 2017-04-15 07:00 | NUR ---
Patient is awake, some confusion noted. no signs of agitation at this time, 1:1 sitter at bedside. with IV access on the left forearm # 20 intact and patent, NS @ 50 cc/hr infusing well. Patient has mittens on both hands as a safety precaution for both patient and hospital staff. Remains calm at the moment. Will continue to monitor closely.
[2017-04-15 07:17] VITALS: BP 118/59
[2017-04-15 08:45] LABS: BASOPHILS % (AUTO) 0.6 % (0.0-2.0); EOSINOPHILS # (AUTO) 0.3 K/uL (0.0-0.7); EOSINOPHILS % (AUTO) 3.7 % (0.0-7.0); HEMATOCRIT 27.9 % (31.2-41.9); HEMOGLOBIN 9.7 g/dL (10.9-14.3); LYMPHOCYTES # (AUTO) 0.7 K/uL (20.0-40.0); LYMPHOCYTES % (AUTO) 10.6 % (20.5-51.5); MEAN CORPUSCULAR HEMOGLOBIN 33.7 uug (24.7-32.8); MEAN CORPUSCULAR HGB CONC 35 g/dL (32.3-35.6); MEAN CORPUSCULAR VOLUME 96.6 fL (75.5-95.3); MONOCYTES # (AUTO) 0.6 K/uL (2.0-10.0); MONOCYTES % (AUTO) 8.9 % (0.0-11.0); NEUTROPHILS # (AUTO) 5.3 K/uL (1.8-8.9); NEUTROPHILS % (AUTO) 76.2 % (38.5-71.5); PLATELET COUNT (AUTO) 230 K/uL (179-408); RED BLOOD CELL COUNT(AUTO) 2.88 MIL/uL (3.63-4.92); WHITE BLOOD COUNT (AUTO) 6.9 K/uL (3.8-11.8)
[2017-04-15 08:54] LABS: CARBON DIOXIDE 27 mmol/L (21-32); CHLORIDE 107 mmol/L (98-107); CREATININE 0.9 mg/dL (0.6-1.3); GLUCOSE 125 mg/dL (74-106); UREA NITROGEN, BLOOD 14 mg/dL (7-18)
[2017-04-15] MEDS: RIVASTIGMINE 9.5 MG/ 24 HR 9.5 MG PATCH TD SCH (08:59)
[2017-04-15] MEDS: QUETIAPINE FUMARATE 25 MG TABLET PO SCH ×2 (08:59→18:37)
[2017-04-15] MEDS: MEMANTINE HCL 5 MG TABLET PO SCH ×2 (08:59→21:32)
[2017-04-15] MEDS: BENAZEPRIL HCL 20 MG TABLET PO SCH (09:00)
[2017-04-15] MEDS: Z GUARD REMEDY PASTE 57 GM TUBE TOP SCH ×2 (09:05→21:32)
[2017-04-15] MEDS: AMLODIPINE 5 MG TABLET PO SCH (09:09)
[2017-04-15 11:45] VITALS: BP 120/64
[2017-04-15] MEDS: IV NS 1000 ML 1,000 ML IV PRN (13:04)
[2017-04-15 15:50] VITALS: BP 136/79
--- NOTE | 2017-04-15 19:10 | NUR ---
Received patient awake, confused, sitter at bedside. No s/s of pain/discomforts noted. Safety measures and fall precaution maintained. Continue care as planned.
--- NOTE | 2017-04-15 19:50 | NUR ---
Patient BP 97/58, HR 78-[address] Lozano made aware with instruction to give Amiodarone bolus once BP went up to 100 and above. Charge nurse aware. Addendum: 04/15/17 at 2009 by PEEWEE MUNIZ RN wrong patient
[2017-04-15 20:00] VITALS: BP 120/57
--- NOTE | 2017-04-15 20:06 | NUR ---
BP now 111/54. Amiodarone bolus initiated as ordered. Will continue to monitor. Addendum: 04/15/17 at 2010 by PEEWEE MUNIZ RN wrong patient.
[2017-04-15] MEDS: QUETIAPINE FUMARATE 100 MG TABLET PO SCH (21:32)
[2017-04-15] MEDS: CEFTRIAXONE 1 G in IV DEXTROSE 5% 50 ML IV SCH (21:32)
[2017-04-16 06:00] VITALS: BP 112/79
[2017-04-16] MEDS: PANTOPRAZOLE SODIUM 40 MG TABLET.DR PO SCH (06:11)
--- NOTE | 2017-04-16 06:14 | NUR ---
Slept well. No agitation/restlessness presented. Sitter remain at bedside. VSS. Continue current plan of care
[2017-04-16 07:04] LABS: BASOPHILS % (AUTO) 0.5 % (0.0-2.0); EOSINOPHILS # (AUTO) 0.2 K/uL (0.0-0.7); EOSINOPHILS % (AUTO) 3.4 % (0.0-7.0); HEMATOCRIT 25.2 % (31.2-41.9); HEMOGLOBIN 8.9 g/dL (10.9-14.3); LYMPHOCYTES # (AUTO) 0.8 K/uL (20.0-40.0); LYMPHOCYTES % (AUTO) 12.1 % (20.5-51.5); MEAN CORPUSCULAR HEMOGLOBIN 34.2 uug (24.7-32.8); MEAN CORPUSCULAR HGB CONC 35 g/dL (32.3-35.6); MEAN CORPUSCULAR VOLUME 96.5 fL (75.5-95.3); MONOCYTES # (AUTO) 0.8 K/uL (2.0-10.0); NEUTROPHILS # (AUTO) 4.7 K/uL (1.8-8.9); PLATELET COUNT (AUTO) 211 K/uL (179-408); RED BLOOD CELL COUNT(AUTO) 2.62 MIL/uL (3.63-4.92); WHITE BLOOD COUNT (AUTO) 6.6 K/uL (3.8-11.8)
[2017-04-16 07:15] LABS: ALANINE AMINOTRANSFERASE 290 U/L (14-59); ALKALINE PHOSPHATASE 409 U/L (50-136); ASPARTATE AMINOTRANSFERASE 261 U/L (15-37); BILIRUBIN,TOTAL 1.6 mg/dL (0.2-1.0); CARBON DIOXIDE 27 mmol/L (21-32); CHLORIDE 107 mmol/L (98-107); CREATININE 0.8 mg/dL (0.6-1.3); GLUCOSE 113 mg/dL (74-106); PHOSPHOROUS 3.2 mg/dL (2.5-4.9); POTASSIUM 3.7 mmol/L (3.5-5.1); UREA NITROGEN, BLOOD 14 mg/dL (7-18)
[2017-04-16] MEDS: RIVASTIGMINE 9.5 MG/ 24 HR 9.5 MG PATCH TD SCH (09:00)
[2017-04-16] MEDS: AMLODIPINE 5 MG TABLET PO SCH (09:04)
[2017-04-16] MEDS: QUETIAPINE FUMARATE 25 MG TABLET PO SCH ×2 (09:04→16:17)
[2017-04-16] MEDS: MEMANTINE HCL 5 MG TABLET PO SCH ×2 (09:05→20:47)
[2017-04-16] MEDS: BENAZEPRIL HCL 20 MG TABLET PO SCH (09:05)
[2017-04-16] MEDS: IV NS 1000 ML 1,000 ML IV PRN (09:51)
[2017-04-16] MEDS: Z GUARD REMEDY PASTE 57 GM TUBE TOP SCH ×2 (11:03→20:48)
[2017-04-16 11:55] VITALS: BP 123/54
[2017-04-16] MEDS: LORAZEPAM 2 MG/1 ML VIAL IV PRN (13:57)
[2017-04-16 15:36] VITALS: BP 148/66
[2017-04-16 20:00] VITALS: BP 132/50
--- NOTE | 2017-04-16 20:00 | NUR ---
PATIENT TOOK ALL HER MEDICATIONS, TOOK FLUID WELL, HAD LARGE SOFT STOOL, KEEP CLEAN AND DRY, SKIN CARE PROVIDED.
--- NOTE | 2017-04-16 20:00 | NUR ---
PATIENT AWAKE, ALERT,CONFUSED,1:1 SITTER AT BEDSIDE FOR SAFETY , VITAL SIGNS STABLE, PATIENT APPEARS IN NO ACUTE DISTRESS,NO S/S OF PAIN.IV FLUID IN FUSING WELL IN LEFT FOREARM.
[2017-04-16] MEDS: QUETIAPINE FUMARATE 100 MG TABLET PO SCH (20:48)
[2017-04-16] MEDS: CEFTRIAXONE 1 G in IV DEXTROSE 5% 50 ML IV SCH (21:38)
[2017-04-16] MEDS: MORPHINE SULFATE 4 MG/1 ML DISP.SYRIN IV PRN (22:32)
--- NOTE | 2017-04-17 | NUR ---
KEEP PATIENT NPO FOR SURGERY IN AM, DAUGHTER CALLED IN, UP DATE PATIENT'S CONDITION.
[2017-04-17 04:00] VITALS: BP 103/45
[2017-04-17 04:34] LABS: *BLOOD, URINE 1+ (NEGATIVE); *COLOR,URINE YELLOW (YELLOW); *PROTEIN,URINE NEGATIVE (NEGATIVE); LEUKOCYTE ESTERASE ,URINE NEGATIVE (NEGATIVE); NITRITE, URINE NEGATIVE (NEGATIVE); UGLUCOSE NEGATIVE (NEGATIVE)
[2017-04-17 04:42] LABS: *BILIRUBIN,URIN 1+ (NEGATIVE); *KETONES,URINE NEGATIVE (NEGATIVE)
[2017-04-17 04:43] LABS: *CLARITY,URINE HAZY (CLEAR)
[2017-04-17 05:00] LABS: BACTERIA,URINE NONE SEEN /HPF (NONE SEEN); SQUAMOUS EPITHELIAL CELL,UR FEW /HPF (NONE SEEN); WBC,URINE 0-3 /HPF (0-3)
[2017-04-17] MEDS: PANTOPRAZOLE SODIUM 40 MG TABLET.DR PO SCH (06:25)
[2017-04-17] MEDS: IV NS 1000 ML 1,000 ML IV PRN (06:27)
[2017-04-17 06:44] LABS: BASOPHILS # (AUTO) 0.1 K/uL (0.0-8.0); BASOPHILS % (AUTO) 0.9 % (0.0-2.0); EOSINOPHILS # (AUTO) 0.4 K/uL (0.0-0.7); EOSINOPHILS % (AUTO) 5.3 % (0.0-7.0); HEMATOCRIT 27.4 % (31.2-41.9); HEMOGLOBIN 9.5 g/dL (10.9-14.3); LYMPHOCYTES # (AUTO) 1.2 K/uL (20.0-40.0); LYMPHOCYTES % (AUTO) 16.9 % (20.5-51.5); MEAN CORPUSCULAR HEMOGLOBIN 33.8 uug (24.7-32.8); MEAN CORPUSCULAR HGB CONC 35 g/dL (32.3-35.6); MONOCYTES # (AUTO) 0.9 K/uL (2.0-10.0); MONOCYTES % (AUTO) 12.6 % (0.0-11.0); NEUTROPHILS # (AUTO) 4.5 K/uL (1.8-8.9); NEUTROPHILS % (AUTO) 64.3 % (38.5-71.5); PLATELET COUNT (AUTO) 192 K/uL (179-408); RED BLOOD CELL COUNT(AUTO) 2.79 MIL/uL (3.63-4.92); WHITE BLOOD COUNT (AUTO) 6.9 K/uL (3.8-11.8)
[2017-04-17 06:57] LABS: ALANINE AMINOTRANSFERASE 316 U/L (14-59); ALKALINE PHOSPHATASE 467 U/L (50-136); ASPARTATE AMINOTRANSFERASE 222 U/L (15-37); BILIRUBIN,TOTAL 1.1 mg/dL (0.2-1.0); CARBON DIOXIDE 26 mmol/L (21-32); CHLORIDE 108 mmol/L (98-107); CREATININE 0.8 mg/dL (0.6-1.3); GLUCOSE 98 mg/dL (74-106); MAGNESIUM 2.2 mg/dL (1.8-2.4); PHOSPHOROUS 3.8 mg/dL (2.5-4.9); POTASSIUM 4.1 mmol/L (3.5-5.1); TOTAL PROTEIN, SERUM 6.2 g/dL (6.4-8.2); UREA NITROGEN, BLOOD 14 mg/dL (7-18)
--- NOTE | 2017-04-17 07:00 | NUR ---
Received client in bed sleeping with the HOB at a semi fowlers position. Bed at lowest position for safety and call light within reach for assistance. 1:1 sitter for safety. Client is a fall risk. Pending surgery of the right shoulder for today at 1330 HRS. Client is NPO at this moment
[2017-04-17] MEDS ORDERED: IRR NORMAL SALINE IRRIGATION 1,000 ML BOTTLE IR ONE (07:21)
[2017-04-17] MEDS ORDERED: EPHEDRINE SULFATE 50 MG/ML AMPUL MC ONE (07:21)
[2017-04-17] MEDS ORDERED: SEVOFLURANE 250 ML BOTTLE IH ONE (07:21)
[2017-04-17] MEDS ORDERED: PROPOFOL 200 MG/20 ML BOTTLE IV ONE (07:21)
[2017-04-17] MEDS ORDERED: LIDOCAINE HCL 1% 20 ML VIAL MC ONE (07:21)
[2017-04-17] MEDS ORDERED: IV NORMAL SALINE 1000 ML BAG IV ONE (07:21)
[2017-04-17] MEDS ORDERED: CEFAZOLIN 1 G VIAL MC ONE (07:21)
[2017-04-17] MEDS ORDERED: ONDANSETRON 4 MG/2 ML VIAL IV ONE (07:21)
[2017-04-17] MEDS ORDERED: DEXAMETHASONE SOD PHOSPHATE 4 MG INJ IV ONE (07:21)
[2017-04-17] MEDS: RIVASTIGMINE 9.5 MG/ 24 HR 9.5 MG PATCH TD SCH (08:51)
[2017-04-17] MEDS: MEMANTINE HCL 5 MG TABLET PO SCH ×2 (08:51→20:34)
[2017-04-17] MEDS: Z GUARD REMEDY PASTE 57 GM TUBE TOP SCH ×2 (08:51→20:35)
[2017-04-17] MEDS: QUETIAPINE FUMARATE 25 MG TABLET PO SCH ×2 (08:51→17:00)
[2017-04-17] MEDS: BENAZEPRIL HCL 20 MG TABLET PO SCH (08:56)
[2017-04-17] MEDS: AMLODIPINE 5 MG TABLET PO SCH (08:59)
--- NOTE | 2017-04-17 09:30 | NUR ---
Client is compliant with morning meds. Client has a 1:1 sitter for safety
--- NOTE | 2017-04-17 14:15 | NUR ---
Consent signed by daughter for blood transfusion if needed during right shoulder surgery
--- NOTE | 2017-04-17 14:30 | NUR ---
Blood drawn for type and cross, 2 units of blood ordered as requested by Dr. De for right shoulder surgery
--- NOTE | 2017-04-17 14:45 | NUR ---
Client was guided down to surgery via gurwilbert accompanied by two nurses and family members
[2017-04-17] MEDS ORDERED: ROCURONIUM BROMIDE 50 MG/5 ML VIAL ONE (15:37)
[2017-04-17] MEDS ORDERED: FENTANYL CITRATE 100 MCG/2 ML AMPUL ONE ×2 (15:37→19:05)
[2017-04-17] MEDS ORDERED: POLYMYXIN B SULFATE 500,000 UNITS, BACITRACIN 50,000 UNITS, NORMAL SALINE 20 ML MC ONE ×3 (16:00)
[2017-04-17] MEDS ORDERED: VANCOMYCIN 1000 MG VIAL ONE (18:03)
[2017-04-17 19:16] LABS: HEMATOCRIT 28.8 % (31.2-41.9); HEMOGLOBIN 9.5 g/dL (10.9-14.3)
--- NOTE | 2017-04-17 19:20 | NUR ---
received patient back fro surgery accompany by family,patient awake, alert, confused, mumbled,s/p reverse arthroplasty of the right shoulder, with immobilizer on, Aquacel dressing to right shoulder c/d/i, ice pack applied, neuro vascular check to right upper extremity WNL, patient calm, no agitation,no s/s of pain noted.
[2017-04-17 20:00] VITALS: BP 149/62
[2017-04-17] MEDS: QUETIAPINE FUMARATE 100 MG TABLET PO SCH (20:35)
--- NOTE | 2017-04-17 21:00 | NUR ---
patient compliant with care, took all her medications, and Hs snack well, aspiration precautions, continue closely monitor 1:1 sitter at bedside.
[2017-04-17 22:00] VITALS: BP 152/64
[2017-04-17] MEDS: CEFTRIAXONE 1 G in IV DEXTROSE 5% 50 ML IV SCH (22:42)
[2017-04-18] VITALS: BP 122/55
--- NOTE | 2017-04-18 00:15 | NUR ---
patient slept intermittently, vital signs stable,f/c drainage clear, adequate urine out put
[2017-04-18] MEDS: IV D5W-0.45% NS +20 KCL 1,000 ML IV PRN (03:26)
[2017-04-18] MEDS: MORPHINE SULFATE 4 MG/1 ML DISP.SYRIN IV PRN (03:32)
[2017-04-18 04:00] VITALS: BP 133/53
--- NOTE | 2017-04-18 04:00 | NUR ---
patient restless,in pain, Morphine 2 mg iv admin for pain ,reassess after 30 min,patient asleep appears comfortable,vital signs stable,safety measures provided.
--- NOTE | 2017-04-18 06:00 | NUR ---
patient more responsive, remain confused,compliant with meds and care.continue 1;1 sitter.
[2017-04-18] MEDS: PANTOPRAZOLE SODIUM 40 MG TABLET.DR PO SCH (06:31)
[2017-04-18 07:24] LABS: ALANINE AMINOTRANSFERASE 221 U/L (14-59); ALKALINE PHOSPHATASE 494 U/L (50-136); ASPARTATE AMINOTRANSFERASE 118 U/L (15-37); BILIRUBIN,TOTAL 0.8 mg/dL (0.2-1.0); CARBON DIOXIDE 27 mmol/L (21-32); CHLORIDE 108 mmol/L (98-107); CREATININE 0.8 mg/dL (0.6-1.3); GLUCOSE 157 mg/dL (74-106); PHOSPHOROUS 3.7 mg/dL (2.5-4.9); POTASSIUM 4.2 mmol/L (3.5-5.1); TOTAL PROTEIN, SERUM 5.8 g/dL (6.4-8.2); UREA NITROGEN, BLOOD 16 mg/dL (7-18)
[2017-04-18 07:28] LABS: NEUTROPHILS % (AUTO) 86.3 % (38.5-71.5); PLATELET COUNT (AUTO) 235 K/uL (179-408)
[2017-04-18 07:39] LABS: BASOPHILS % (AUTO) 0.1 % (0.0-2.0); LYMPHOCYTES # (AUTO) 0.4 K/uL (20.0-40.0); LYMPHOCYTES % (AUTO) 3.9 % (20.5-51.5); MEAN CORPUSCULAR HEMOGLOBIN 33.9 uug (24.7-32.8); MEAN CORPUSCULAR HGB CONC 35 g/dL (32.3-35.6); MONOCYTES # (AUTO) 1.1 K/uL (2.0-10.0); MONOCYTES % (AUTO) 9.7 % (0.0-11.0); NEUTROPHILS # (AUTO) 9.4 K/uL (1.8-8.9)
[2017-04-18 07:42] LABS: RED BLOOD CELL COUNT(AUTO) 2.41 MIL/uL (3.63-4.92)
[2017-04-18 07:43] LABS: HEMATOCRIT 23.6 % (31.2-41.9); HEMOGLOBIN 8.2 g/dL (10.9-14.3); WHITE BLOOD COUNT (AUTO) 10.9 K/uL (3.8-11.8)
[2017-04-18] MEDS: AMLODIPINE 5 MG TABLET PO SCH (09:00)
[2017-04-18] MEDS: BENAZEPRIL HCL 20 MG TABLET PO SCH (09:00)
[2017-04-18] MEDS: MEMANTINE HCL 5 MG TABLET PO SCH ×2 (09:16→20:32)
[2017-04-18] MEDS: RIVASTIGMINE 9.5 MG/ 24 HR 9.5 MG PATCH TD SCH (09:16)
[2017-04-18] MEDS: QUETIAPINE FUMARATE 25 MG TABLET PO SCH ×3 (09:18→17:17)
[2017-04-18] MEDS: Z GUARD REMEDY PASTE 57 GM TUBE TOP SCH ×2 (09:19→20:37)
[2017-04-18] MEDS: ACETAMINOPHEN 325 MG TABLET PO PRN ×3 (09:20→17:17)
[2017-04-18 09:36] VITALS: BP 127/42
[2017-04-18 10:52] LABS: IRON, SERUM 17 ug/dL (50-175)
--- NOTE | 2017-04-18 13:14 | NUR ---
STARTED A NEW IV 22G ON RIGHT HAND. CLIENT TOLERATED PROCEDURE WELL. PREVIOUS ONE WAS LEAKING. IV HYDRATION RESTARTED. ICE PACK PLACED ON THE RIGHT SHOULDER.
--- NOTE | 2017-04-18 18:53 | NUR ---
Restarted peripheral IV 22 g on the left upper forearm. Pervious one noted on the left had was slightly swelling. Removed IV at once, elevated hand and arm on pillow, placed a warm pack on the hand. family aware.
--- NOTE | 2017-04-18 19:30 | NUR ---
RECEIVED PT AWAKE ON BED. PT IV INTACT AND PATENT. PT HAS SWOLLEN RIGHT ARM AND BRUISES AT THE RIGHT SIDE OF THE BACK. Sitter on bedside. Bed alarm on and in low position and side rails up. will continue to monitor.
--- NOTE | 2017-04-18 19:58 | NUR ---
Client is in bed resting. 1:1 sitter provided for safety. Call light within reach for assistance an d call light within reach for assistance. No apparent signs and symptoms of SOB, pain, distress or discomfort
[2017-04-18 20:00] VITALS: BP 110/67
[2017-04-18] MEDS: QUETIAPINE FUMARATE 100 MG TABLET PO SCH (20:33)
[2017-04-19] VITALS (11 sets, daily range): BP systolic 110–133; BP diastolic 42–63
[2017-04-19] MEDS: IV D5W-0.45% NS +20 KCL 1,000 ML IV PRN (00:04)
[2017-04-19 06:24] LABS: BASOPHILS % (AUTO) 0.2 % (0.0-2.0); EOSINOPHILS # (AUTO) 0.1 K/uL (0.0-0.7); EOSINOPHILS % (AUTO) 0.8 % (0.0-7.0); LYMPHOCYTES # (AUTO) 0.5 K/uL (20.0-40.0); LYMPHOCYTES % (AUTO) 5.8 % (20.5-51.5); NEUTROPHILS # (AUTO) 7.1 K/uL (1.8-8.9)
[2017-04-19] MEDS: PANTOPRAZOLE SODIUM 40 MG TABLET.DR PO SCH (06:24)
[2017-04-19 06:25] LABS: MEAN CORPUSCULAR HGB CONC 34 g/dL (32.3-35.6); MONOCYTES % (AUTO) 11.1 % (0.0-11.0); NEUTROPHILS % (AUTO) 82.1 % (38.5-71.5); PLATELET COUNT (AUTO) 224 K/uL (179-408); WHITE BLOOD COUNT (AUTO) 8.6 K/uL (3.8-11.8)
[2017-04-19 06:26] LABS: ALANINE AMINOTRANSFERASE 219 U/L (14-59); ASPARTATE AMINOTRANSFERASE 167 U/L (15-37); CARBON DIOXIDE 25 mmol/L (21-32); CHLORIDE 105 mmol/L (98-107); CREATININE 0.9 mg/dL (0.6-1.3); MAGNESIUM 1.7 mg/dL (1.8-2.4); PHOSPHOROUS 1.9 mg/dL (2.5-4.9); POTASSIUM 5.7 mmol/L (3.5-5.1); TOTAL PROTEIN, SERUM 5.2 g/dL (6.4-8.2); UREA NITROGEN, BLOOD 10 mg/dL (7-18)
--- NOTE | 2017-04-19 06:42 | NUR ---
PT SLEPT THROUGHOUT THE SHIFT. PT SHOWS NO SIGNS OF DISTRESS. PRESCRIBED MEDICATION GIVEN TO PT. PICTURE OF THE SWELLING AND BRUISE OF THE PT TAKEN AND PUT ON THE CHART OF THE PT. SITTER ON BEDSIDE. SAFETY AND COMFORT PROVIDED.
[2017-04-19 06:43] LABS: ALKALINE PHOSPHATASE 361 U/L (50-136)
[2017-04-19 06:47] LABS: GLUCOSE 560 mg/dL (74-106)
--- NOTE | 2017-04-19 06:55 | NUR ---
LAB CALLED AT 0647 FOR THE RESULT OF GLUCOSE 560. NOTIFIED. ORDERED TO DO ACCUCHECK FOR THE PT. GOT A RESULT OF 134. TOLD THE CHARGE NURSE. CHARGE NURSE ORDER GLUCOSE STAT. CONTINUE THE iV OF THE PT. WILL ENDORSE TO THE DAY SHIFT NURSE.
[2017-04-19 07:27] LABS: HEMATOCRIT 20.6 % (31.2-41.9)
[2017-04-19 07:28] LABS: RED BLOOD CELL COUNT(AUTO) 2.06 MIL/uL (3.63-4.92)
--- NOTE | 2017-04-19 08:00 | NUR ---
Lab relayed critical lab results of hgb 7.0 hct 20.6 and rbc 2.06. informed dr. Anderson. awaiting call back. will continue to monitor patient
[2017-04-19] MEDS: LORAZEPAM 2 MG/1 ML VIAL IV PRN (08:16)
[2017-04-19] MEDS: MEMANTINE HCL 5 MG TABLET PO SCH ×2 (08:17→20:33)
[2017-04-19] MEDS: QUETIAPINE FUMARATE 25 MG TABLET PO SCH ×3 (08:17→18:05)
[2017-04-19] MEDS: RIVASTIGMINE 9.5 MG/ 24 HR 9.5 MG PATCH TD SCH (08:17)
[2017-04-19] MEDS: AMLODIPINE 5 MG TABLET PO SCH (08:18)
[2017-04-19] MEDS: BENAZEPRIL HCL 20 MG TABLET PO SCH (08:18)
[2017-04-19] MEDS: Z GUARD REMEDY PASTE 57 GM TUBE TOP SCH ×2 (08:27→22:12)
--- NOTE | 2017-04-19 08:50 | NUR ---
Dr. Anderson called back with orders to infuse 1 bag of PRBC, noted and carried out. Consent for blood transfusion obtained from patient's daughter via telephone consent with [place] RN to witness.
--- NOTE | 2017-04-19 10:00 | NUR ---
administered 1 unit PRBC, verified blood bag to be infused with [place] RN. All information correct and complete. Ran blood transfusion at 70 cc/hr. Vital signs check q 15 mins x 4. Vital signs stable and documented. will continue to monitor closely.
[2017-04-19] MEDS: ACETAMINOPHEN 325 MG TABLET PO PRN (10:54)
[2017-04-19] MEDS ORDERED: MAGNESIUM SULFATE/D5W 100 ML IV SCH (11:00)
[2017-04-19] MEDS ORDERED: DEXTROSE 50% 50 ML DISP.SYRIN IV PRN (11:00)
[2017-04-19] MEDS ORDERED: NEUTRA PHOS PACKET PO ONE (11:00)
[2017-04-19] MEDS ORDERED: INSULIN REGULAR, HUMAN 300 UNIT/3 ML VIAL SQ PRN (11:00)
--- NOTE | 2017-04-19 11:00 | NUR ---
No s/s of allergic reaction to blood transfusion. Vital signs WNL. increased rate to 125 cc/hr. Vital signs monitored Q 30 mins x 2. Will continue to observe.
[2017-04-19] MEDS ORDERED: BLOOD SUGAR DIAGNOSTIC 1 EACH STRIP VI SCH (11:30)
[2017-04-19 11:38] LABS: THYROID STIMULATING HORMONE 0.849 mIU/mL (0.358-3.740)
[2017-04-19] MEDS: FERROUS SULFATE 325 MG TABEC PO SCH ×2 (13:04→20:33)
[2017-04-19] MEDS: IV NS 1000 ML 1,000 ML IV PRN (13:38)
--- NOTE | 2017-04-19 13:40 | NUR ---
Blood transfusion done. patient in stable condition no s/s of allergic reaction to blood. Vital signs remain WNL. will document accordingly. Will continue to observe closely.
--- NOTE | 2017-04-19 15:00 | NUR ---
seen and examined by Cori RABBIT DRESSER, with orders, noted and carried out
[2017-04-19] MEDS: PANTOPRAZOLE SODIUM 40 MG VIAL IV SCH (18:05)
--- NOTE | 2017-04-19 20:00 | NUR ---
RECEIVED PT IN BED SHE DOZES ON AND OFF, SHE'S CONFUSED AND UNABLE TO STATE HER NEEDS. PT WITH NO S/S OF PAIN OR DISCOMFORT, NO RESP DISTRESS NOTED HOB AT 45 DEGREES WITH FEET RAISED TO BEND THE KNEES, HSS BRACE ON AND INTACT. SITTER IS AT BED SIDE, WILL CONTINUE TO MONITOR PT
[2017-04-19] MEDS: QUETIAPINE FUMARATE 100 MG TABLET PO SCH (20:33)
[2017-04-20 06:00] VITALS: BP 119/54
[2017-04-20] MEDS: ACETAMINOPHEN 325 MG TABLET PO PRN (06:09)
--- NOTE | 2017-04-20 06:32 | NUR ---
PT IS AWAKE AND CONFUSED SHE TALKS TO SELF, NO S/S OF PAIN OR DISTRESS NOTED.SHE HAD TEMP 100.6, MEDICATED WITH PRN TYLENOL ORDERED.NO FURTHER CONCERNS, SITTER REMAINS AT BEDSIDE. ALL NEEDS WERE MET ON THIS SHIFT
[2017-04-20 06:49] LABS: ALANINE AMINOTRANSFERASE 344 U/L (14-59); ALKALINE PHOSPHATASE 513 U/L (50-136); ASPARTATE AMINOTRANSFERASE 327 U/L (15-37); CARBON DIOXIDE 22 mmol/L (21-32); CHLORIDE 110 mmol/L (98-107); CREATININE 0.8 mg/dL (0.6-1.3); GLUCOSE 106 mg/dL (74-106); PHOSPHOROUS 2.5 mg/dL (2.5-4.9); POTASSIUM 3.8 mmol/L (3.5-5.1); TOTAL PROTEIN, SERUM 5.7 g/dL (6.4-8.2); UREA NITROGEN, BLOOD 14 mg/dL (7-18)
[2017-04-20 07:01] LABS: BASOPHILS % (AUTO) 0.5 % (0.0-2.0); EOSINOPHILS # (AUTO) 0.2 K/uL (0.0-0.7); EOSINOPHILS % (AUTO) 2.3 % (0.0-7.0); LYMPHOCYTES # (AUTO) 0.9 K/uL (20.0-40.0); LYMPHOCYTES % (AUTO) 9.9 % (20.5-51.5); MEAN CORPUSCULAR HEMOGLOBIN 33.3 uug (24.7-32.8); MEAN CORPUSCULAR HGB CONC 35 g/dL (32.3-35.6); MEAN CORPUSCULAR VOLUME 96.6 fL (75.5-95.3); MONOCYTES % (AUTO) 11.2 % (0.0-11.0); NEUTROPHILS % (AUTO) 76.1 % (38.5-71.5); PLATELET COUNT (AUTO) 270 K/uL (179-408); RED BLOOD CELL COUNT(AUTO) 2.85 MIL/uL (3.63-4.92); WHITE BLOOD COUNT (AUTO) 9.2 K/uL (3.8-11.8)
[2017-04-20 07:12] LABS: HEMOGLOBIN 9.5 g/dL (10.9-14.3)
[2017-04-20 07:13] LABS: HEMATOCRIT 27.5 % (31.2-41.9)
[2017-04-20 08:00] VITALS: BP 114/42
[2017-04-20] MEDS: AMLODIPINE 5 MG TABLET PO SCH (09:00)
[2017-04-20] MEDS: FERROUS SULFATE 325 MG TABEC PO SCH ×2 (09:07→21:00)
[2017-04-20] MEDS: MEMANTINE HCL 5 MG TABLET PO SCH ×2 (09:07→21:00)
[2017-04-20] MEDS: RIVASTIGMINE 9.5 MG/ 24 HR 9.5 MG PATCH TD SCH (09:07)
[2017-04-20] MEDS: QUETIAPINE FUMARATE 25 MG TABLET PO SCH ×3 (09:08→17:00)
[2017-04-20] MEDS: PANTOPRAZOLE SODIUM 40 MG VIAL IV SCH ×2 (09:08→17:09)
[2017-04-20] MEDS: Z GUARD REMEDY PASTE 57 GM TUBE TOP SCH ×2 (09:08→21:07)
[2017-04-20] MEDS: IV NS 1000 ML 1,000 ML IV PRN (11:13)
[2017-04-20 11:36] LABS: *BLOOD, URINE Trace-intact (NEGATIVE); *CLARITY,URINE CLEAR (CLEAR); *COLOR,URINE YELLOW (YELLOW); *KETONES,URINE NEGATIVE (NEGATIVE); *PROTEIN,URINE NEGATIVE (NEGATIVE); LEUKOCYTE ESTERASE ,URINE NEGATIVE (NEGATIVE); NITRITE, URINE NEGATIVE (NEGATIVE); UGLUCOSE NEGATIVE (NEGATIVE)
[2017-04-20 11:53] LABS: *BILIRUBIN,URIN 1+ (NEGATIVE)
[2017-04-20 11:54] LABS: BACTERIA,URINE NONE SEEN /HPF (NONE SEEN); SQUAMOUS EPITHELIAL CELL,UR MODERATE /HPF (NONE SEEN); URINE AMORPHOUS PHOSPHATES FEW /HPF
[2017-04-20 11:55] LABS: MUCUS,URINE FEW /LPF (0-FEW)
[2017-04-20 12:00] VITALS: BP 120/61
[2017-04-20] MEDS: LORAZEPAM 2 MG/1 ML VIAL IV PRN ×2 (12:10→23:46)
[2017-04-20] MEDS: PIPERACILLIN/TAZOBACTAM/D5W 50 ML IV SCH ×3 (13:15→23:47)
[2017-04-20] MEDS ORDERED: BISACODYL 10 MG SUPP.RECT RC ONE (14:30)
--- NOTE | 2017-04-20 14:34 | NUR ---
pt seen on rounding. pt continues to be confused. replaced inflitrated iv to 20g left wrist. pt has pending ob stool culture. md fairchild ordered to have no egd or colonoscpy done until further notice. pt given ativan for agitation. pt has low grade fever. pt given tylenol. will continue to monitor.
[2017-04-20 15:30] VITALS: BP 129/56
[2017-04-20] MEDS: POTASSIUM CHLORIDE 20 MEQ in IV D5/ 0.9% NACL 1,000 ML IV PRN (16:03)
[2017-04-20 18:02] LABS: *OCCULT BLOOD STOOL NEGATIVE (NEGATIVE)
--- NOTE | 2017-04-20 18:53 | NUR ---
applied dulcosax supposistory. stool sample snet. pt seemed constipated. pt placed on npo for possible gallstone according to ct abdomen. [facility] pink order to transfer pt to [place]. charge nurse. aware. pt continues to be conrfused. no new injuries. will endorse to hourly shift nurse.
--- NOTE | 2017-04-20 20:00 | NUR ---
RECEIVED PT ASLEEP BUT EASILY AROUSABLE. SHE'S ALERT WITH CONFUSION AND UNABLE TO STATE HER NEEDS. NO S/S OF PAIN OR DISTRESS NOTED, HOB IS AT 45 DEGREES WITH FOOT RAISED TO BEND THE KNEES. HSS BRACE ON AND INTACT. SITTER IS AT BED SIDE. SAFETY MEASURES IN PLACE, WILL CONTINUE TO MONITOR PT
[2017-04-20 20:16] VITALS: BP 121/59
[2017-04-20] MEDS: QUETIAPINE FUMARATE 100 MG TABLET PO SCH (21:00)
--- NOTE | 2017-04-20 21:05 | NUR ---
MD GUY CALLED WITH NEW ORDERS TO HOLD ALL SEROQUEL ORDERS UNTIL HE FURTHER EVALUATES PT
[2017-04-20 22:07] LABS: BILIRUBIN,DIRECT 0.8 mg/dL (0.0-0.2); BILIRUBIN,TOTAL 1.4 mg/dL (0.2-1.0)
[2017-04-21 04:30] VITALS: BP 118/54
[2017-04-21] MEDS: PIPERACILLIN/TAZOBACTAM/D5W 50 ML IV SCH ×3 (05:46→17:12)
[2017-04-21] MEDS: LORAZEPAM 2 MG/1 ML VIAL IV PRN (06:19)
[2017-04-21 06:38] LABS: BASOPHILS % (AUTO) 0.4 % (0.0-2.0); EOSINOPHILS # (AUTO) 0.1 K/uL (0.0-0.7); EOSINOPHILS % (AUTO) 0.9 % (0.0-7.0); HEMATOCRIT 27.7 % (31.2-41.9); HEMOGLOBIN 9.3 g/dL (10.9-14.3); LYMPHOCYTES # (AUTO) 0.9 K/uL (20.0-40.0); LYMPHOCYTES % (AUTO) 7.1 % (20.5-51.5); MEAN CORPUSCULAR HEMOGLOBIN 32.3 uug (24.7-32.8); MEAN CORPUSCULAR HGB CONC 34 g/dL (32.3-35.6); MEAN CORPUSCULAR VOLUME 96.3 fL (75.5-95.3); MONOCYTES # (AUTO) 1.3 K/uL (2.0-10.0); MONOCYTES % (AUTO) 10.3 % (0.0-11.0); NEUTROPHILS # (AUTO) 9.9 K/uL (1.8-8.9); NEUTROPHILS % (AUTO) 81.3 % (38.5-71.5); PLATELET COUNT (AUTO) 320 K/uL (179-408); RED BLOOD CELL COUNT(AUTO) 2.88 MIL/uL (3.63-4.92); WHITE BLOOD COUNT (AUTO) 12.2 K/uL (3.8-11.8)
--- NOTE | 2017-04-21 06:39 | NUR ---
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 ATIVAN PRN GIVEN ORDERED, CALM QUIET ENVIRONMENT PROVIDED, COMFORT MEASURES IN PLACE. SITTER REMAINS AT BED SIDE. NO FURTHER CONCERNS
[2017-04-21 06:59] LABS: ALANINE AMINOTRANSFERASE 349 U/L (14-59); ALKALINE PHOSPHATASE 612 U/L (50-136); ASPARTATE AMINOTRANSFERASE 226 U/L (15-37); BILIRUBIN,TOTAL 1.3 mg/dL (0.2-1.0); CARBON DIOXIDE 23 mmol/L (21-32); CHLORIDE 110 mmol/L (98-107); CREATININE 0.9 mg/dL (0.6-1.3); GLUCOSE 137 mg/dL (74-106); PHOSPHOROUS 2.8 mg/dL (2.5-4.9); POTASSIUM 3.9 mmol/L (3.5-5.1); TOTAL PROTEIN, SERUM 5.9 g/dL (6.4-8.2); UREA NITROGEN, BLOOD 20 mg/dL (7-18)
[2017-04-21 07:14] LABS: BILIRUBIN,DIRECT 0.6 mg/dL (0.0-0.2); BILIRUBIN,TOTAL 1.2 mg/dL (0.2-1.0); TOTAL PROTEIN, SERUM 5.9 g/dL (6.4-8.2)
[2017-04-21 07:58] VITALS: BP 126/51
--- NOTE | 2017-04-21 08:00 | NUR ---
RESTING COMFORTABLY IN BED NO SS OF DISTRESS OR PAIN, SITTER AT BEDSIDE. NPO MAINTAINED TILL FURTHER ORDER DUE TO ELEVATED ENZYMES
[2017-04-21] MEDS: PANTOPRAZOLE SODIUM 40 MG VIAL IV SCH ×2 (08:46→17:08)
[2017-04-21] MEDS: Z GUARD REMEDY PASTE 57 GM TUBE TOP SCH ×2 (08:47→20:14)
[2017-04-21] MEDS: RIVASTIGMINE 9.5 MG/ 24 HR 9.5 MG PATCH TD SCH (08:47)
--- NOTE | 2017-04-21 10:00 | NUR ---
VERIFIED WITH DR LARA ABOUT NPO STATUS WITH ORDERS
[2017-04-21 11:38] VITALS: BP 124/58
[2017-04-21] MEDS: MIRALAX 17 GM POWD.PACK PO SCH (11:44)
[2017-04-21] MEDS: POTASSIUM CHLORIDE 20 MEQ in IV D5/ 0.9% NACL 1,000 ML IV PRN (11:44)
[2017-04-21] MEDS: MEMANTINE HCL 5 MG TABLET PO SCH ×2 (11:45→20:13)
[2017-04-21] MEDS: FERROUS SULFATE 325 MG TABEC PO SCH ×2 (11:45→20:13)
[2017-04-21] MEDS: QUETIAPINE FUMARATE 25 MG TABLET PO SCH ×3 (11:45→17:09)
[2017-04-21] MEDS: AMLODIPINE 5 MG TABLET PO SCH (11:45)
--- NOTE | 2017-04-21 12:48 | NUR ---
EASILY AWAKEN, STILL CONFUSED BUT NO SIGNS GETTING OUT OF BED. CONTINUE WITH 1:1 SITTER FOR SAFETY
--- NOTE | 2017-04-21 13:36 | NUR ---
1300 DOSE NOT GIVEN FIRST DOSE GIVEN AT 1145
[2017-04-21 15:39] VITALS: BP 121/58
[2017-04-21 19:00] VITALS: BP 128/68
--- NOTE | 2017-04-21 19:26 | NUR ---
HIDA / GALLBLADDER: PT UNABLE TO RAISE ARMS UP FOR RT LATERAL IMAGES DUE TO SHOULDER INJURY. PT REFUSED TO DRINK MILK TOWARDS END OF STUDY FO GALLBLADDER EMPTYING
[2017-04-21 20:00] VITALS: BP 128/62
--- NOTE | 2017-04-21 20:00 | NUR ---
PATIENT ASLEEP IN BED. EASILY AROUSABLE. ALERT TO SELF. SITTER AT BEDSIDE FOR SAFETY. VSS. NO S/S OF PAIN OR DISCOMFORT. NO FACIAL GRIMACE NOTED. IVF INFUSING WELL TO LEFT WRIST. F/C INTACT AND DRAINING WELL. RIGHT SHOULDER NOTED IN SLING. BED ALARM ON. ALL NEEDS ATTENDED. WILL CONTINUE TO MONITOR AND ASSESS.
[2017-04-21] MEDS: QUETIAPINE FUMARATE 100 MG TABLET PO SCH (20:13)
[2017-04-21] MEDS ORDERED: QUETIAPINE FUMARATE 25 MG TABLET PO SCH (21:00)
[2017-04-22] MEDS: PIPERACILLIN/TAZOBACTAM/D5W 50 ML IV SCH ×4 (00:27→17:32)
[2017-04-22 04:40] VITALS: BP 126/72
[2017-04-22] MEDS: POTASSIUM CHLORIDE 20 MEQ in IV D5/ 0.9% NACL 1,000 ML IV PRN (05:27)
--- NOTE | 2017-04-22 07:00 | NUR ---
PATIENT ASLEEP IN BED. SITTER AT BEDSIDE. SLEPT WELL. IVF INFUSING WELL TO LEFT WRIST. F/C INTACT AND DRAINING WELL. NO S/S OF PAIN OR DISCOMFORT. NO RESP. DISTRESS NOTED. REPOSITIONED TO SIDE FOR PRESSURE RELIEF/COMFORT. BILATERAL HEELS ELEVATED. BED ALARM ON. CALL LIGHT IN REACH, ALL NEEDS ATTENDED. WILL CONTINUE TO MONITOR.
[2017-04-22 07:05] LABS: BASOPHILS # (AUTO) 0.1 K/uL (0.0-8.0); BASOPHILS % (AUTO) 0.6 % (0.0-2.0); EOSINOPHILS # (AUTO) 0.3 K/uL (0.0-0.7); EOSINOPHILS % (AUTO) 3.3 % (0.0-7.0); HEMATOCRIT 28.1 % (31.2-41.9); HEMOGLOBIN 9.5 g/dL (10.9-14.3); LYMPHOCYTES # (AUTO) 0.8 K/uL (20.0-40.0); MEAN CORPUSCULAR HEMOGLOBIN 32.5 uug (24.7-32.8); MEAN CORPUSCULAR HGB CONC 34 g/dL (32.3-35.6); MEAN CORPUSCULAR VOLUME 95.8 fL (75.5-95.3); MONOCYTES # (AUTO) 0.8 K/uL (2.0-10.0); MONOCYTES % (AUTO) 9.1 % (0.0-11.0); NEUTROPHILS # (AUTO) 7.1 K/uL (1.8-8.9); PLATELET COUNT (AUTO) 334 K/uL (179-408); RED BLOOD CELL COUNT(AUTO) 2.93 MIL/uL (3.63-4.92)
[2017-04-22 07:21] LABS: WHITE BLOOD COUNT (AUTO) 9.1 K/uL (3.8-11.8)
[2017-04-22] MEDS: RIVASTIGMINE 9.5 MG/ 24 HR 9.5 MG PATCH TD SCH (08:23)
[2017-04-22] MEDS: QUETIAPINE FUMARATE 25 MG TABLET PO SCH ×3 (08:23→17:32)
[2017-04-22] MEDS: MIRALAX 17 GM POWD.PACK PO SCH ×2 (08:23→08:38)
[2017-04-22] MEDS: MEMANTINE HCL 5 MG TABLET PO SCH ×2 (08:23→20:54)
[2017-04-22] MEDS: PANTOPRAZOLE SODIUM 40 MG VIAL IV SCH (08:23)
[2017-04-22] MEDS: FERROUS SULFATE 325 MG TABEC PO SCH ×2 (08:24→20:54)
[2017-04-22] MEDS: AMLODIPINE 5 MG TABLET PO SCH (08:26)
[2017-04-22 08:27] VITALS: BP 123/57
[2017-04-22] MEDS: Z GUARD REMEDY PASTE 57 GM TUBE TOP SCH ×2 (08:28→20:53)
[2017-04-22 09:04] LABS: ALANINE AMINOTRANSFERASE 217 U/L (14-59); ALKALINE PHOSPHATASE 441 U/L (50-136); ASPARTATE AMINOTRANSFERASE 76 U/L (15-37); BILIRUBIN,TOTAL 1.1 mg/dL (0.2-1.0); CARBON DIOXIDE 23 mmol/L (21-32); CHLORIDE 110 mmol/L (98-107); CREATININE 0.9 mg/dL (0.6-1.3); GLUCOSE 109 mg/dL (74-106); MAGNESIUM 1.9 mg/dL (1.8-2.4); PHOSPHOROUS 2.8 mg/dL (2.5-4.9); POTASSIUM 3.6 mmol/L (3.5-5.1); UREA NITROGEN, BLOOD 15 mg/dL (7-18)
[2017-04-22 12:21] VITALS: BP 122/72
--- NOTE | 2017-04-22 15:15 | NUR ---
Patient agitated, refusing patient care, screaming. Will administer PRN medication and reassess.
[2017-04-22 15:16] VITALS: BP 130/54
[2017-04-22] MEDS: LORAZEPAM 2 MG/1 ML VIAL IV PRN (15:19)
[2017-04-22] MEDS ORDERED: LORAZEPAM 2 MG/1 ML VIAL IV ONE (16:30)
[2017-04-22] MEDS: PANTOPRAZOLE SODIUM 40 MG TABLET.DR PO SCH (17:32)
--- NOTE | 2017-04-22 18:00 | NUR ---
Patient calm, resting in bed. When asked if patient has pain, patient stated "no pain". Sling on right arm secured as ordered. IVF running, no infiltration noted. Ernandez cath patent/intact, draining yellow, clear, urine. Patient kept clean/dry, repositioned for comfort. 1:1 sitter provided for safety. Will continue to monitor.
[2017-04-22 19:00] VITALS: BP 114/69
--- NOTE | 2017-04-22 20:00 | NUR ---
PATIENT ASLEEP IN BED. EASILY AROUSABLE. ALERT TO SELF ONLY. CONFUSED AND DISORIENTED. SITTER AT BEDSIDE FOR SAFETY. VSS. NO S/S OF PAIN OR DISCOMFORT. NO FACIAL GRIMACE NOTED. IVF INFUSING WELL TO LEFT FA. F/C INTACT AND DRAINING WELL. RIGHT SHOULDER NOTED IN SLING. BED ALARM ON. ALL NEEDS ATTENDED. WILL CONTINUE TO MONITOR AND ASSESS.
[2017-04-22] MEDS: QUETIAPINE FUMARATE 100 MG TABLET PO SCH (20:54)
[2017-04-22] MEDS: HYDROCODONE/APAP 5-325MG TABLET PO PRN (21:40)
[2017-04-23] MEDS: POTASSIUM CHLORIDE 20 MEQ in IV D5/ 0.9% NACL 1,000 ML IV PRN ×2 (01:03→22:09)
[2017-04-23 05:00] VITALS: BP 107/58
--- NOTE | 2017-04-23 06:17 | NUR ---
PATIENT ASLEEP IN BED. EASILY AROUSABLE. ALERT TO SELF. SITTER AT BEDSIDE FOR SAFETY. VSS. NO S/S OF PAIN OR DISCOMFORT. NO FACIAL GRIMACE NOTED. IVF INFUSING WELL TO LEFT FA #22 GAUGE. F/C INTACT AND DRAINING WELL. RIGHT SHOULDER NOTED IN SLING. BED ALARM ON. ALL NEEDS ATTENDED. WILL CONTINUE TO MONITOR AND ASSESS.
[2017-04-23] MEDS: PIPERACILLIN/TAZOBACTAM/D5W 50 ML IV SCH ×4 (06:19→17:36)
[2017-04-23] MEDS: PANTOPRAZOLE SODIUM 40 MG TABLET.DR PO SCH ×2 (06:39→16:37)
[2017-04-23] MEDS: MORPHINE SULFATE 4 MG/1 ML DISP.SYRIN IV PRN (07:38)
[2017-04-23 08:22] LABS: BASOPHILS % (AUTO) 0.5 % (0.0-2.0); EOSINOPHILS # (AUTO) 0.2 K/uL (0.0-0.7); EOSINOPHILS % (AUTO) 2.8 % (0.0-7.0); HEMATOCRIT 29.1 % (31.2-41.9); HEMOGLOBIN 9.8 g/dL (10.9-14.3); LYMPHOCYTES # (AUTO) 0.9 K/uL (20.0-40.0); LYMPHOCYTES % (AUTO) 11.1 % (20.5-51.5); MEAN CORPUSCULAR HEMOGLOBIN 32.2 uug (24.7-32.8); MEAN CORPUSCULAR HGB CONC 34 g/dL (32.3-35.6); MEAN CORPUSCULAR VOLUME 95.6 fL (75.5-95.3); MONOCYTES # (AUTO) 0.7 K/uL (2.0-10.0); MONOCYTES % (AUTO) 8.9 % (0.0-11.0); NEUTROPHILS # (AUTO) 6.3 K/uL (1.8-8.9); NEUTROPHILS % (AUTO) 76.7 % (38.5-71.5); PLATELET COUNT (AUTO) 337 K/uL (179-408); RED BLOOD CELL COUNT(AUTO) 3.04 MIL/uL (3.63-4.92); WHITE BLOOD COUNT (AUTO) 8.3 K/uL (3.8-11.8)
[2017-04-23 08:49] LABS: ALANINE AMINOTRANSFERASE 147 U/L (14-59); ALKALINE PHOSPHATASE 351 U/L (50-136); ASPARTATE AMINOTRANSFERASE 39 U/L (15-37); CARBON DIOXIDE 26 mmol/L (21-32); CHLORIDE 109 mmol/L (98-107); CREATININE 0.8 mg/dL (0.6-1.3); GLUCOSE 119 mg/dL (74-106); MAGNESIUM 1.9 mg/dL (1.8-2.4); PHOSPHOROUS 3.1 mg/dL (2.5-4.9); POTASSIUM 3.7 mmol/L (3.5-5.1); TOTAL PROTEIN, SERUM 5.9 g/dL (6.4-8.2); UREA NITROGEN, BLOOD 12 mg/dL (7-18)
[2017-04-23] MEDS: MIRALAX 17 GM POWD.PACK PO SCH ×2 (09:00→09:25)
[2017-04-23 09:13] VITALS: BP 130/69
[2017-04-23] MEDS: QUETIAPINE FUMARATE 25 MG TABLET PO SCH ×4 (09:22→16:37)
[2017-04-23] MEDS: MEMANTINE HCL 5 MG TABLET PO SCH ×2 (09:22→20:57)
[2017-04-23] MEDS: FERROUS SULFATE 325 MG TABEC PO SCH ×2 (09:24→20:57)
[2017-04-23] MEDS: AMLODIPINE 5 MG TABLET PO SCH (09:25)
[2017-04-23] MEDS: Z GUARD REMEDY PASTE 57 GM TUBE TOP SCH ×2 (09:25→20:58)
[2017-04-23] MEDS: RIVASTIGMINE 9.5 MG/ 24 HR 9.5 MG PATCH TD SCH (09:25)
[2017-04-23 10:07] LABS: *VITAMIN D 25-OH VIT D 37 ng/mL (.); *VITAMIN D 25-OH, D2 <1.0 ng/mL (.); *VITAMIN D 25-OH, D3 37 ng/mL (.)
[2017-04-23 11:12] VITALS: BP 132/62
--- NOTE | 2017-04-23 12:00 | NUR ---
Patient was not able to take seroquel, patient spitted out the medication. Will retry again later. Family at bedside.
--- NOTE | 2017-04-23 13:17 | NUR ---
Patient was able to take her seroquel, pt is cooperative. Family at bedside.
[2017-04-23 15:22] VITALS: BP 141/69
[2017-04-23] MEDS: ACETAMINOPHEN 325 MG TABLET PO PRN (16:37)
[2017-04-23] MEDS: LORAZEPAM 2 MG/1 ML VIAL IV PRN (16:37)
[2017-04-23 20:00] VITALS: BP 143/40
--- NOTE | 2017-04-23 20:30 | NUR ---
PATIENT ALERT,CONFUSED,VERBALLY RESPONSIVE,AQUACEL DRESSING TO RIGHT SHOULDER WITH IMMOBILIZER ON,1:1 SITTER MONITOR FOR SAFETY,PATIENT DENIES PAIN/DISCOMFORT,COMPLIANT WITH MEDS AND CARE,NO S/S OF DISTRESS NOTED.
[2017-04-23] MEDS: QUETIAPINE FUMARATE 100 MG TABLET PO SCH (20:57)
[2017-04-24] MEDS: PIPERACILLIN/TAZOBACTAM/D5W 50 ML IV SCH ×3 (00:26→12:17)
[2017-04-24 04:35] VITALS: BP 132/62
--- NOTE | 2017-04-24 04:38 | NUR ---
patient sleep well, est 6 hours ,appears comfortable,vital signs stable,safety measures maintain.f/c drainage adequate urine out put.
[2017-04-24] MEDS: PANTOPRAZOLE SODIUM 40 MG TABLET.DR PO SCH ×2 (06:02→16:30)
[2017-04-24 07:33] LABS: BASOPHILS # (AUTO) 0.1 K/uL (0.0-8.0); BASOPHILS % (AUTO) 0.8 % (0.0-2.0); EOSINOPHILS # (AUTO) 0.3 K/uL (0.0-0.7); EOSINOPHILS % (AUTO) 3.3 % (0.0-7.0); HEMATOCRIT 29.6 % (31.2-41.9); HEMOGLOBIN 9.8 g/dL (10.9-14.3); LYMPHOCYTES # (AUTO) 0.9 K/uL (20.0-40.0); LYMPHOCYTES % (AUTO) 11.9 % (20.5-51.5); MEAN CORPUSCULAR HEMOGLOBIN 31.9 uug (24.7-32.8); MEAN CORPUSCULAR HGB CONC 33 g/dL (32.3-35.6); MONOCYTES # (AUTO) 0.6 K/uL (2.0-10.0); MONOCYTES % (AUTO) 8.1 % (0.0-11.0); NEUTROPHILS # (AUTO) 5.7 K/uL (1.8-8.9); NEUTROPHILS % (AUTO) 75.9 % (38.5-71.5); PLATELET COUNT (AUTO) 382 K/uL (179-408); RED BLOOD CELL COUNT(AUTO) 3.08 MIL/uL (3.63-4.92); WHITE BLOOD COUNT (AUTO) 7.5 K/uL (3.8-11.8)
[2017-04-24 07:50] LABS: ALANINE AMINOTRANSFERASE 113 U/L (14-59); ALKALINE PHOSPHATASE 317 U/L (50-136); ASPARTATE AMINOTRANSFERASE 33 U/L (15-37); BILIRUBIN,TOTAL 0.8 mg/dL (0.2-1.0); CARBON DIOXIDE 26 mmol/L (21-32); CHLORIDE 109 mmol/L (98-107); CREATININE 0.9 mg/dL (0.6-1.3); GLUCOSE 111 mg/dL (74-106); POTASSIUM 3.7 mmol/L (3.5-5.1); TOTAL PROTEIN, SERUM 6.2 g/dL (6.4-8.2); UREA NITROGEN, BLOOD 10 mg/dL (7-18)
[2017-04-24] MEDS: MIRALAX 17 GM POWD.PACK PO SCH (09:06)
[2017-04-24] MEDS: MEMANTINE HCL 5 MG TABLET PO SCH (09:06)
[2017-04-24] MEDS: RIVASTIGMINE 9.5 MG/ 24 HR 9.5 MG PATCH TD SCH (09:06)
[2017-04-24] MEDS: FERROUS SULFATE 325 MG TABEC PO SCH (09:06)
[2017-04-24] MEDS: QUETIAPINE FUMARATE 25 MG TABLET PO SCH ×3 (09:06→16:30)
[2017-04-24] MEDS: AMLODIPINE 5 MG TABLET PO SCH (09:07)
[2017-04-24] MEDS: Z GUARD REMEDY PASTE 57 GM TUBE TOP SCH (09:30)
--- NOTE | 2017-04-24 10:00 | NUR ---
PATIENT SEEN BY PHYSICAL THERAPY SHE SEATED AT THE EDGE OF THE BED SHE IS NOT FOLLOWING COMMANDS SO SHE WAS ASSISTED BACK INTO BED WITH IMMOBILISER AND SLING IN PLACE.
[2017-04-24 12:30] VITALS: BP 123/71
--- NOTE | 2017-04-24 14:00 | NUR ---
ORDER NOTED TO [facility] AWAITING FOR THE ADVANCED MANAGER TO ARRANGE PLACEMENT.
[2017-04-24] MEDS ORDERED: RIVA1PAT3 TD (14:55)
[2017-04-24] MEDS ORDERED: BISA10SU61 RC (14:55)
[2017-04-24] MEDS ORDERED: ACID1TAB4 PO (14:55)
[2017-04-24] MEDS ORDERED: POLY17PO4 PO (14:55)
[2017-04-24] MEDS ORDERED: BENA20TA2 PO (14:55)
[2017-04-24] MEDS ORDERED: MEMA5TAB PO (14:55)
[2017-04-24] MEDS ORDERED: PANT40TA2 PO (14:55)
[2017-04-24] MEDS ORDERED: MULT1TAB73 PO (14:55)
[2017-04-24] MEDS ORDERED: ACET325T53 PO (14:55)
[2017-04-24] MEDS ORDERED: QUET25TA PO (14:55)
[2017-04-24] MEDS ORDERED: MENT71OI TOP (14:55)
[2017-04-24] MEDS ORDERED: FERR325T28 PO (14:55)
--- NOTE | 2017-04-24 15:00 | NUR ---
DR MATOS HERE ASKED HIM IF I SHOULD CHANGE THE DRESSING ON THE RIGHT SHOULDER PATIENT WILL BE DISCHARGED TO SNF TODAY AND HE STATED NO JUST LEAVE JENNI DRESSING IN TACT THE PATIENT SHOULD MAKE AND APPOINTMENT TO SEE HIM IN HIS OFFICE IN ONE WEEK. DRESSING IS CLEAN DRY AND INTACT AT THIS TIME.
[2017-04-24 16:00] VITALS: BP 130/69
[2017-04-24] MEDS ORDERED: LORAZEPAM 2 MG/1 ML VIAL IM ONE (16:00)
--- NOTE | 2017-04-24 16:15 | NUR ---
GETTING VERY AGITATED AND RESTLESS DR GOMEZ NOTIFIED WITH NEW ORDER FOR ATIVAN GIVEN ORDERED AND WILL OBSERVE.
--- NOTE | 2017-04-24 16:30 | NUR ---
CALLED THE [facility] SPOKE WITH DIANNA AND REPORT GIVEN FOR CONTINUING CARE .PATIENT SHOULD FOLLOW UP WITH DR MATOS IN HIS OFFICE IN ONE WEEK PATIENT STILL HAS THE ORIGINAL DRESSING AND SHOULD BE LEFT IN PLACE UNTIL SEEN BY THE ORTHO EXCEPT THERE HAPPENS TO BE A DRAINAGE AND SHE EXPRESSED UNDERSTANDING.
[2017-04-24] MEDS: HYDROCODONE/APAP 5-325MG TABLET PO PRN (16:31)
--- NOTE | 2017-04-24 16:54 | NUR ---
DR MATOS WAS HERE AT THE UNIT AND I NOTIFIED HIM THAT PATIENT IS BEING DISCHARGED TODAY AND ASKED HIM IF I SHOULD CHANGE THE DRESSING ON HER RIGHT SHOULDER STATED NO LEAVE IT ALONE HAVE THE PATIENT COME TO HIS OFFICE FOR FOOLOW UP IN ONE WEEK.
--- NOTE | 2017-04-24 18:53 | NUR ---
PATIENT DISCHARGED PICKED UP BY [facility] IN SATISFACTORY CONDITION WITH DISCHARGE INSTRUCTIONS AND ALL HER PERSONAL BELONGINGS.
== END 2017-04-24 18:50 | DRG 483 ==
LOC: TELE 20:48 → MED 04-11 14:55
PROVIDERS: ADMIT Internal Medicine; ATTEND Internal Medicine
PROC: 0RRJ00Z Replacement of Right Shoulder Joint with Reverse Ball and Socket Synthetic Substitute, Open Approach (ICD-10-PCS; principal; 2017-04-17 15:19)
PROC: 30233N1 Transfusion of Nonautologous Red Blood Cells into Peripheral Vein, Percutaneous Approach (ICD-10-PCS; 2017-04-19)
DX: S42.211A Unspecified displaced fracture of surgical neck of right humerus, initial encounter for closed fracture (principal); N17.0 Acute kidney failure with tubular necrosis; E43 Unspecified severe protein-calorie malnutrition; D50.0 Iron deficiency anemia secondary to blood loss (chronic); D68.59 Other primary thrombophilia; K80.00 Calculus of gallbladder with acute cholecystitis without obstruction; E87.5 Hyperkalemia; K27.4 Chronic or unspecified peptic ulcer, site unspecified, with hemorrhage; F02.81 Dementia in other diseases classified elsewhere, unspecified severity, with behavioral disturbance; N39.0 Urinary tract infection, site not specified; R71.0 Precipitous drop in hematocrit; G30.9 Alzheimer's disease, unspecified; W19.XXXA Unspecified fall, initial encounter; Y92.238 Other place in hospital as the place of occurrence of the external cause; Z68.20 Body mass index [BMI] 20.0-20.9, adult; E78.5 Hyperlipidemia, unspecified; F41.9 Anxiety disorder, unspecified; F29 Unspecified psychosis not due to a substance or known physiological condition; S46.211A Strain of muscle, fascia and tendon of other parts of biceps, right arm, initial encounter; R73.9 Hyperglycemia, unspecified; M25.411 Effusion, right shoulder; I10 Essential (primary) hypertension; H10.9 Unspecified conjunctivitis; Z74.09 Other reduced mobility; K56.41 Fecal impaction; I73.9 Peripheral vascular disease, unspecified; N28.1 Cyst of kidney, acquired
CPT/HCPCS: 36415; 70450; 71045; 73020; 73030; 73200; 78445; 82746; 83550; 83690; 83735; 84100; 84132; 84443; 85018; 85025; 85730; 86850; 86900; 86901; 86920; 87040; 87086; 97110; 97530; A4217; A4649; A4663; A9537; C1713; C9113; J0690; J0696; J1100; J1815; J2060; J2270; J2405; J2543; J3010; J3370; J3475; J3480; J3490; J7030; J7042; J7050; J7060; P9016-BL; P9021